=== PATIENT | female | born 1950 | race Caucasian/White ===

== ENCOUNTER 2017-06-05 10:48 | Outpatient (CLI) | payer MEDICARE ==
[2017-06-05 11:30] LABS: Albumin 2.9 g/dL (3.9-5); Calcium 8.7 mg/dL (8.4-10.2)
== END 2017-06-05 10:49 | disposition home or self-care (01) ==
LOC: LAB 10:48
PROVIDERS: ATTEND Internal Medicine Nephrology
DX: E11.65 Type 2 diabetes mellitus with hyperglycemia (principal); E78.5 Hyperlipidemia, unspecified; R94.4 Abnormal results of kidney function studies; R60.9 Edema, unspecified; R80.0 Isolated proteinuria
CPT/HCPCS: 36415; 80048; 82040; 84100

== ENCOUNTER 2021-03-31 14:37 | Observation (INO) | payer MEDICARE ==
[2021-03-31] MEDS ORDERED: HYDROcodone/ACETAMINOPHEN 5-325 MG TAB PO ONE (14:47)
[2021-03-31] MEDS ORDERED: cloNIDine 0.1 MG TAB PO ONE (14:47)
--- NOTE | 2021-03-31 14:52 | Emergency Department Report ---
ED General Adult HPI - General Chief complaint: Medical Clearance Stated complaint: MEDICAL CLEARANCE Time Seen by Provider: 03/31/21 14:40 Source: patient Mode of arrival: Ambulatory Limitations: Physical Limitation - History of Present Illness Initial comments: Patient is a 70-year-old female presents emergency room with complaints of being sent to the emergency department due to hyperkalemia. Patient has a history of end-stage renal disease. She states that she went for her regular dialysis appointment today but was advised to report to the emergency room due to hyperkalemia. She states that she had the lab work performed on 03/29/21. Patient reports that she did miss dialysis on Friday03/27/21 secondary to acute on chronic back pain but reports that she went for her regular dialysis treatment on , 03/29/21. Patient's only complaint is back pain. She states that she has a history of bulging disc. She states that she believes she strained a muscle in her back. She denies any fall or significant trauma. She denies any numbness or weakness. She denies any chest pain or shortness of breath. She states that her honing machine operator tool is Dr. Barillas in [place]. Allergy to indomethacin and ofloxacin. - Related Data Allergies Allergy/AdvReac Type Severity Reaction Status Date / Time indomethacin [From Indocin] Allergy Headache Verified 03/31/21 14:40 ofloxacin [From Floxin] Allergy Hives Verified 03/31/21 14:40 ED Review of Systems ROS: Stated complaint: MEDICAL CLEARANCE Other details as noted in HPI Comment: All other systems reviewed and negative ED Physical Exam - General Limitations: Physical Limitation General appearance: alert, in no apparent distress - Head Head exam: Present: atraumatic, normocephalic - Eye Eye exam: Present: normal appearance - ENT ENT exam: Present: mucous membranes moist - Respiratory Respiratory exam: Present: normal lung sounds bilaterally. Absent: respiratory distress, wheezes, rales, rhonchi, stridor, chest wall tenderness, accessory muscle use, decreased breath sounds, prolonged expiratory - Cardiovascular Cardiovascular Exam: Present: regular rate, normal rhythm, normal heart sounds. Absent: systolic murmur, diastolic murmur, rubs, gallop - Neurological Exam Neurological exam: Present: alert, oriented X3 - Psychiatric Psychiatric exam: Present: normal affect, normal mood - Skin Skin exam: Present: warm, dry, intact ED Course Vital Signs 03/31/21 03/31/21 03/31/21 14:40 15:05 15:08 Temperature 98.1 F Pulse Rate 91 H Respiratory 19 14 Rate Blood Pressure 234/100 Blood Pressure [Right] O2 Sat by Pulse 99 91 100 Oximetry 03/31/21 03/31/21 03/31/21 15:10 15:11 15:12 Temperature 98.1 F Pulse Rate 86 85 85 Respiratory 17 17 Rate Blood Pressure 200/79 200/79 Blood Pressure 200/79 [Right] O2 Sat by Pulse 99 99 Oximetry 03/31/21 03/31/21 03/31/21 16:01 16:03 16:31 Temperature Pulse Rate 74 74 71 Respiratory 14 17 15 Rate Blood Pressure 194/65 194/65 Blood Pressure 194/65 [Right] O2 Sat by Pulse 96 97 97 Oximetry 03/31/21 03/31/21 03/31/21 17:01 17:31 18:01 Temperature Pulse Rate 72 74 69 Respiratory 14 16 11 L Rate Blood Pressure 155/56 137/56 141/55 Blood Pressure [Right] O2 Sat by Pulse 99 99 97 Oximetry 03/31/21 03/31/21 18:31 19:01 Temperature Pulse Rate 80 68 Respiratory 18 11 L Rate Blood Pressure 136/57 158/74 Blood Pressure [Right] O2 Sat by Pulse 99 97 Oximetry - Consultations Consultation #1: 03/31/21 16:[address] West, honing machine operator tool regarding patient history and results, she states that patient will be dialyzed today and will likely be able to be discharged after dialysis 03/31/21 16:[address] Blanton, hospitalist will accept and resume care of patient, will admit to hospital service ED Medical Decision Making - Lab Data Result diagrams: 03/31/21 15:21 03/31/21 15:21 Lab Results 03/31/21 03/31/21 Range/Units 15:21 15:21 WBC 5.3 (4.5-11.0) K/mm3 RBC 3.57 L (3.65-5.03) M/mm3 Hgb 10.9 (10.1-14.3) gm/dl Hct 34.3 (30.3-42.9) % MCV 96 (79-97) fl MCH 31 (28-32) pg MCHC 32 (30-34) % RDW 15.6 H (13.2-15.2) % Plt Count 238 (140-440) K/mm3 Lymph % (Auto) 23.4 (13.4-35.0) % [place] % (Auto) 8.6 H (0.0-7.3) % Eos % (Auto) 5.1 H (0.0-4.3) % Baso % (Auto) 0.9 (0.0-1.8) % Lymph # (Auto) 1.2 (1.2-5.4) K/mm3 [place] # (Auto) 0.5 (0.0-0.8) K/mm3 Eos # (Auto) 0.3 (0.0-0.4) K/mm3 Baso # (Auto) 0.0 (0.0-0.1) K/mm3 Seg Neutrophils % 62.0 (40.0-70.0) % Seg Neutrophils # 3.3 (1.8-7.7) K/mm3 Sodium 132 L (137-145) mmol/L Potassium 5.9 H (3.6-5.0) mmol/L Chloride 92.4 L (98-107) mmol/L Carbon Dioxide 21 L (22-30) mmol/L Anion Gap 25 mmol/L BUN 54 H (7-17) mg/dL Creatinine 6.1 H (0.6-1.2) mg/dL Estimated GFR 7 ml/min BUN/Creatinine Ratio 9 % Glucose 118 H (65-100) mg/dL Calcium 9.0 (8.4-10.2) mg/dL Total Bilirubin 0.20 (0.1-1.2) mg/dL AST 12 (5-40) units/L ALT 8 (7-56) units/L Alkaline Phosphatase 108 (35-129) units/L Total Protein 7.0 (6.3-8.2) g/dL Albumin 3.7 L (3.9-5) g/dL Albumin/Globulin Ratio 1.1 % Vital Signs 03/31/21 03/31/21 03/31/21 14:40 15:05 15:08 Temperature 98.1 F Pulse Rate 91 H Respiratory 19 14 Rate Blood Pressure 234/100 Blood Pressure [Right] O2 Sat by Pulse 99 91 100 Oximetry 03/31/21 03/31/21 03/31/21 15:10 15:11 15:12 Temperature 98.1 F Pulse Rate 86 85 85 Respiratory 17 17 Rate Blood Pressure 200/79 200/79 Blood Pressure 200/79 [Right] O2 Sat by Pulse 99 99 Oximetry 03/31/21 03/31/21 03/31/21 16:01 16:03 16:31 Temperature Pulse Rate 74 74 71 Respiratory 14 17 15 Rate Blood Pressure 194/65 194/65 Blood Pressure 194/65 [Right] O2 Sat by Pulse 96 97 97 Oximetry 03/31/21 03/31/21 03/31/21 17:01 17:31 18:01 Temperature Pulse Rate 72 74 69 Respiratory 14 16 11 L Rate Blood Pressure 155/56 137/56 141/55 Blood Pressure [Right] O2 Sat by Pulse 99 99 97 Oximetry 03/31/21 03/31/21 18:31 19:01 Temperature Pulse Rate 80 68 Respiratory 18 11 L Rate Blood Pressure 136/57 158/74 Blood Pressure [Right] O2 Sat by Pulse 99 97 Oximetry - EKG Data EKG shows normal: sinus rhythm, axis Rate: normal - EKG Data 03/31/21 20:18 PACs low voltage no STEMI - Medical Decision Making Patient is a 70-year-old female presents emergency room with complaints of being sent to the emergency department due to hyperkalemia. Patient has a history of end-stage renal disease. She states that she went for her regular dialysis appointment today but was advised to report to the emergency room due to hyperkalemia. She states that she had the lab work performed on 03/29/21. Patient reports that she did miss dialysis on Friday03/27/21 secondary to acute on chronic back pain but reports that she went for her regular dialysis treatment on , 03/29/21. Patient's only complaint is back pain. She states that she has a history of bulging disc. She states that she believes she strained a muscle in her back. She denies any fall or significant trauma. She denies any numbness or weakness. She denies any chest pain or shortness of breath. She states that her honing machine operator tool is Dr. Barillas in [place]. Allergy to indomethacin and ofloxacin. Initial vitals with significantly elevated blood pressure, patient given medications with improvement of blood pressure. Lab significant for elevated creatinine, elevated BUN, hyperkalemia at 5.9. EKG with PACs and low voltage, otherwise stable. Spoke to Dr. West, honing machine operator tool regarding patient history and results, she states that patient will be dialyzed today and will likely be able to be discharged after dialysis. spoke to DR. Blanton, hospitalist will accept and resume care of patient, will admit to hospital service. Discussed all results with patient,patient agreeable with plan. Critical care attestation.: If time is entered above; I have spent that time in minutes in the direct care of this critically ill patient, excluding procedure time. ED Disposition Clinical Impression: ESRD (end stage renal disease), Hyperkalemia, Hypertensive urgency Chronic low back pain Qualifiers: Back pain laterality: bilateral Sciatica presence: without sciatica Qualified Code(s): M54.50 - Low back pain, unspecified Disposition: 02 [facility]ORT [facility]M [facility] Is pt being admited?: Yes Does the pt Need Aspirin: No Condition: Stable Time of Disposition: 16:12
[2021-03-31 15:33] LABS: Basophils % (Auto) 0.9 % (0.0-1.8); Eosinophils # (Auto) 0.3 K/mm3 (0.0-0.4); Eosinophils % (Auto) 5.1 % (0.0-4.3); Hematocrit 34.3 % (30.3-42.9); Hemoglobin 10.9 gm/dl (10.1-14.3); Lymphocytes # (Auto) 1.2 K/mm3 (1.2-5.4); Lymphocytes % (Auto) 23.4 % (13.4-35.0); Mean Corpuscular HGB Conc 32 % (30-34); Mean Corpuscular Volume 96 fl (79-97); Monocytes # (Auto) 0.5 K/mm3 (0.0-0.8); Monocytes % (Auto) 8.6 % (0.0-7.3); Platelet Count 238 K/mm3 (140-440); Red Blood Count 3.57 M/mm3 (3.65-5.03); Red Cell Distribution Width 15.6 % (13.2-15.2)
[2021-03-31 15:56] LABS: Albumin 3.7 g/dL (3.9-5)
[2021-03-31] MEDS ORDERED: hydrALAZINE 100 MG TAB PO ONE (16:11)
[2021-03-31] MEDS ORDERED: SODIUM CHLORIDE 0.9% 100 ML IV PRN (17:00)
[2021-03-31 18:08] LABS: Hepatitis C Virus Antibody Non-Reactive (NonReactive)
[2021-03-31 18:17] LABS: Hepatitis B Surface Antigen Nonreactive (Negative)
--- NOTE | 2021-03-31 18:34 | History and Physical Report ---
History of Present Illness Date of examination: 03/31/21 Date of admission: 03/31/21 16:12 Chief complaint: Next hemodialysis History of present illness: 60-year-old female with past medical history of end-stage renal disease sent to the emergency department because of high potassium level. Patient has a history of end-stage renal disease patient went to her regular dialysis appointment today but was advised to report to the emergency room because of hyperkalemia. She states that she had other lab performed on 03/29/2021 and initiated missed hemodialysis on 03/27/2021 secondary to acute on chronic back pain. She did not go for her regular dialysis treatment on , 03/29/2021. Patient's only complaint is back pain secondary to bulging disc. Patient wants to get her hemodialysis and go home because she has a dog at home no shortness of breath. Her lagging machine operator is [facility]. No chest pain. No fever or chills. Past History Past Medical History: hypertension, hyperlipidemia, renal failure Past Surgical History: Other (AV fistula) Social history: Lives alone, full code Family history: hypertension Medications and Allergies Allergies Allergy/AdvReac Type Severity Reaction Status Date / Time indomethacin [From Indocin] Allergy Headache Verified 03/31/21 14:40 ofloxacin [From Floxin] Allergy Hives Verified 03/31/21 14:40 Active Meds: Active Medications Sodium Chloride (Nacl 0.9%) 100 mls @ 999 mls/hr IV YOCASTA PRN PRN Reason: Hypotension Review of Systems All systems: negative Exam - Constitutional Vitals: Temp Pulse Resp BP Pulse Ox 98.1 F 74 16 137/56 99 03/31/21 15:12 03/31/21 17:31 03/31/21 17:31 03/31/21 17:31 03/31/21 17:31 General appearance: Present: no acute distress, well-nourished - EENT Eyes: Present: PERRL ENT: hearing intact, clear oral mucosa - Neck Neck: Present: supple, normal ROM - Respiratory Respiratory effort: normal Respiratory: bilateral: CTA - Cardiovascular Heart rate: 78 Rhythm: regular Heart Sounds: Present: S1 & S2. Absent: rub, click - Extremities Extremities: no ischemia, pulses intact, pulses symmetrical, No edema Peripheral Pulses: within normal limits - Abdominal General gastrointestinal: Present: soft, non-tender, non-distended, normal bowel sounds Female genitourinary: Present: normal - Integumentary Integumentary: Present: clear, warm, dry - Musculoskeletal Musculoskeletal: gait normal, strength equal bilaterally - Psychiatric Psychiatric: appropriate mood/affect, intact judgment & insight - Neurologic Neurologic: CNII-XII intact, moves all extremities - Allied Health Allied health notes reviewed: nursing, case management Results - Labs CBC & Chem 7: 03/31/21 15:21 03/31/21 15:21 Labs: Laboratory Last Values WBC 5.3 K/mm3 (4.5-11.0) 03/31/21 15: RBC 3.57 M/mm3 (3.65-5.03) L 03/31/21 15: Hgb 10.9 gm/dl (10.1-14.3) 03/31/21 15: Hct 34.3 % (30.3-42.9) 03/31/21 15: MCV 96 fl (79-97) 03/31/21 15: MCH 31 pg (28-32) 03/31/21 15: MCHC 32 % (30-34) 03/31/21 15: RDW 15.6 % (13.2-15.2) H 03/31/21 15:21 Plt Count 238 K/mm3 (140-440) 03/31/21 15:21 Lymph % (Auto) 23.4 % (13.4-35.0) 03/31/21 15: [place] % (Auto) 8.6 % (0.0-7.3) H 03/31/21 15: Eos % (Auto) 5.1 % (0.0-4.3) H 03/31/21 15:21 Baso % (Auto) 0.9 % (0.0-1.8) 03/31/21 15: Lymph # (Auto) 1.2 K/mm3 (1.2-5.4) 03/31/21 15:21 [place] # (Auto) 0.5 K/mm3 (0.0-0.8) 03/31/21 15:21 Eos # (Auto) 0.3 K/mm3 (0.0-0.4) 03/31/21 15:21 Baso # (Auto) 0.0 K/mm3 (0.0-0.1) 03/31/21 15:21 Seg Neutrophils % 62.0 % (40.0-70.0) 03/31/21 15:21 Seg Neutrophils # 3.3 K/mm3 (1.8-7.7) 03/31/21 15:21 Sodium 132 mmol/L (137-145) L 03/31/21 15:21 Potassium 5.9 mmol/L (3.6-5.0) H 03/31/21 15:21 Chloride 92.4 mmol/L (98-107) L 03/31/21 15:21 Carbon Dioxide 21 mmol/L (22-30) L 03/31/21 15:21 Anion Gap 25 mmol/L 03/31/21 15:21 BUN 54 mg/dL (7-17) H 03/31/21 15:21 Creatinine 6.1 mg/dL (0.6-1.2) H 03/31/21 15:21 Estimated GFR 7 ml/min 03/31/21 15:21 BUN/Creatinine Ratio 9 % 03/31/21 15:21 Glucose 118 mg/dL (65-100) H 03/31/21 15:21 Calcium 9.0 mg/dL (8.4-10.2) 03/31/21 15:21 Total Bilirubin 0.20 mg/dL (0.1-1.2) 03/31/21 15:21 AST 12 units/L (5-40) 03/31/21 15:21 ALT 8 units/L (7-56) 03/31/21 15:21 Alkaline Phosphatase 108 units/L (35-129) 03/31/21 15:21 Total Protein 7.0 g/dL (6.3-8.2) 03/31/21 15:21 Albumin 3.7 g/dL (3.9-5) L 03/31/21 15:21 Albumin/Globulin Ratio 1.1 % 03/31/21 15:21 Hepatitis A IgM Ab Non-reactive (NonReactive) 03/31/21 16:51 Hep Bs Antigen Nonreactive (Negative) 03/31/21 16:51 Hep B Core IgM Ab Non-reactive (NonReactive) 03/31/21 16:51 Hepatitis C Antibody Non-reactive (NonReactive) 03/31/21 16:51 Assessment and Plan Advance Directives: Yes (Full code) VTE prophylaxis?: Chemical Plan of care discussed with patient/family: Yes - Patient Problems (1) Hyperkalemia Current Visit: Yes Status: Acute Plan to address problem: Patient was given Kayexalate calcium gluconate and sodium bicarbonate Patient to get emergent hemodialysis today (2) ESRD (end stage renal disease) Current Visit: Yes Status: Chronic Plan to address problem: Hemodialysis today or tomorrow a.m. Nephrology consulted (3) Hypertension Current Visit: Yes Status: Chronic Qualifiers: Hypertension type: primary hypertension Qualified Code(s): I10 - Essential (primary) hypertension Plan to address problem: Continue antihypertensives and adjust medications (4) Chronic low back pain Current Visit: Yes Status: Chronic Qualifiers: Back pain laterality: bilateral Sciatica presence: without sciatica Qualified Code(s): M54.50 - Low back pain, unspecified; G89.29 - Other chronic pain Plan to address problem: Analgesics as necessary (5) DVT prophylaxis Current Visit: Yes Status: Acute Plan to address problem: Anticoagulation and GI prophylaxis (6) Discharge planning issues Current Visit: Yes Status: Acute Plan to address problem: Recheck potassium in a.m. Patient to be discharged after hemodialysis Potassium to be checked very hemodialysis nurse Informed 2122-dialysis clinic
[2021-03-31] MEDS ORDERED: ONDANSETRON 4 MG/2 ML INJ IV PRN (19:33)
[2021-03-31] MEDS ORDERED: ACETAMINOPHEN 325 MG TAB PO PRN (19:33)
[2021-03-31] MEDS ORDERED: oxyCODONE /ACETAMINOPHEN 5-325MG TAB PO PRN (19:38)
[2021-03-31] MEDS ORDERED: METOCLOPRAMIDE 10 MG/2 ML INJ IV PRN ×2 (19:38→19:44)
[2021-03-31] MEDS ORDERED: CALCIUM GLUCONATE 2,000 MG in SODIUM CHLORIDE 0.9% 100 ML IV ONE (19:40)
[2021-03-31] MEDS ORDERED: SODIUM POLYSTYRENE 15 GM/60 ML ORAL LIQD PO ONE (21:45)
[2021-03-31] MEDS ORDERED: SODIUM BICARB 8.4% 50 MEQ/50 ML SYRINGE IV ONE (21:45)
[2021-04-01] MEDS: HEPARIN 5,000 UNIT/1 ML VIAL SUB-Q SCH ×2 (03:46→09:58)
[2021-04-01] MEDS: FAMOTIDINE 10 MG TAB PO SCH ×3 (03:53→10:03)
--- NOTE | 2021-04-01 09:41 | Electrocardiograph Report ---
[facility] Test Date: 2021-03-31 Test Time: 15:55:38 Pat Name: TALIA ESCOBAR Department: Room: A379 Gender: F [employer]anner: KUSH : 1950 Requested By: VANESSA BYNUM Order Number: [id number] Reading MD: Keith Chaidez Measurements Intervals [place] Rate: 80 P: 62 NE: 167 QRS: 17 QRSD: 79 T: 64 QT: 371 QTc: 429 Interpretive Statements Sinus rhythm Atrial premature complex No previous ECG available for comparison Electronically Signed On 04-01-2021 9:40:46 EST by Keith Chaidez
[2021-04-01 11:58] LABS: Calcium 9.4 mg/dL (8.4-10.2)
--- NOTE | 2021-04-01 13:21 | Consultation ---
History of Present Illness - Reason for Consult Consult date: 04/01/21 end stage renal disease, hyperkalemia - History of Present Illness Mrs. Zarate is a 70yo with ESRD on HD TTS who presented to the ED at the direction of her outpatient dialysis clinic. Patient reports that she missed dialysis on Friday but presented and completed her full treatment on . Labs were collected pretreatment on7.47 sday and were remarkable for a K 7.4. She was sent to the ED for hyperkalemia In the ED, K 5.9. Hemodialysis was ordered. Mrs. Zarate has no complaints. Past History Past Medical History: hypertension, hyperlipidemia, renal failure Past Surgical History: Other (AV fistula) Social history: Lives alone, full code Family history: hypertension Medications and Allergies Allergies Allergy/AdvReac Type Severity Reaction Status Date / Time indomethacin [From Indocin] Allergy Headache Verified 03/31/21 14:40 ofloxacin [From Floxin] Allergy Hives Verified 03/31/21 14:40 Active Meds: Active Medications Acetaminophen (Acetaminophen 325 Mg Tab) 650 mg PO Q4H PRN PRN Reason: Pain MILD(1-3)/Fever >100.5/[place] Famotidine (Famotidine 10 Mg Tab) 10 mg PO BID [facility] Last Admin: 04/01/21 10:03 Dose: Not Given Documented by: Heparin Sodium (Porcine) (Heparin 5,000 Unit/1 Ml Vial) 5,000 unit SUB-Q Q12HR [facility] Last Admin: 04/01/21 09:58 Dose: 5,000 unit Documented by: Sodium Chloride (Nacl 0.9%) 100 mls @ 999 mls/hr IV YOCASTA PRN PRN Reason: Hypotension Metoclopramide HCl (Metoclopramide 10 Mg/2 Ml Inj) 2.5 mg IV Q6H PRN PRN Reason: Nausea And Vomiting Ondansetron HCl (Ondansetron 4 Mg/2 Ml Inj) 4 mg IV Q8H PRN PRN Reason: Nausea And Vomiting Oxycodone/Acetaminophen (Oxycodone /Acetaminophen 5-325mg Tab) 1 tab PO Q6H PRN PRN Reason: Pain, Moderate (4-6) Last Admin: 04/01/21 04:06 Dose: 1 tab Documented by: Sodium Chloride (Sodium Chloride 0.9% 10 Ml Flush Syringe) 10 ml IV BID [facility] Last Admin: 04/01/21 12:01 Dose: 10 ml Documented by: Sodium Chloride (Sodium Chloride 0.9% 10 Ml Flush Syringe) 10 ml IV PRN PRN PRN Reason: LINE FLUSH Review of Systems All systems: negative Exam - Vital Signs Vital signs: Vital Signs Temp Pulse Resp BP Pulse Ox 98.1 F 91 H 19 234/100 99 03/31/21 14:40 03/31/21 14:40 03/31/21 14:40 03/31/21 14:40 03/31/21 14:40 - General Appearance General appearance: well-developed, well-nourished EENT: ATNC Respiratory: Clear to Ascultation Heart: regular, S1S2 Gastrointestinal: Present: normal. Absent: tenderness, distended Integumentary: no rash, warm and dry Neurologic: alert and oriented x3 Musculoskeletal: Present: other (no edema) Psychiatric: cooperative Results - Lab Results 03/31/21 15:21 04/01/21 10:51 Most recent lab results Calcium 9.4 mg/dL (8.4-10.2) 04/01/21 10:51 Assessment and Plan Impression: * End stage renal disease * Hyperkalemia * Hypertension * Anemia secondary to ESRD * Secondary hyperparathyroidism Plan: * Patient is s/p hemodialysis yesterday * No indication for HD today * Continue outpatient TTS schedule * Okay to discharge from a renal standpoint * Patient advised of risk of with missed dialysis treatments. Need for compliance addressed with patient
--- NOTE | 2021-04-01 14:26 | Discharge Summary ---
Providers - Providers Date of Admission: 03/31/21 16:12 Date of discharge: 04/01/21 Attending physician: MEDHAT ANGEL MD 03/31/21 16:09 Consult to Physician [CONS] Stat Comment: Consulting Provider: JOSHUA SIMMS Physician Instructions: Reason For Exam: hyperkalemia, ESRD Hospitalization Condition: Stable Hospital course: Mrs. Zarate is a 70yo with obesity, HTN, DM, ESRD on HD TTS has ongoing lumbar back pain from a disc disease. She intermittently misses her dialysis. She missed her dialysis on last Friday due to back pain but went back for dialysis on and received full dialysis. Predialysis blood work showed potassium of 7.4 and patient was directed to ER on Friday from dialysis center to get hyperkalemia addressed. Her dialysis staff did not perform her dialysis and instead asked her to go to ER. In ED potassium 5.9 and was treated with insulin, glucose and sodium bicarbonate. CO2 21. Patient did not have dyspnea or volume overload. She was admitted and underwent dialysis last night. She is feeling fine and wants to go home. Potassium today is 4.4. Patient does not have her home med list and does not remember them. Patient reports that her blood pressure has been running high lately. However, reports good glycemic control with oral therapy. Patient was seen by nephrology and they cleared her for discharge. Patient was instructed by nephrology not to miss her dialysis which can cause severe hyperkalemia putting her at the risk of cardiac arrest and . Patient verbalizes her understanding of this and states that she will try to be compliant with dialysis. Patient instructed on a low potassium diet. She is being discharged hemodynamically stable condition. Patient is given a prescription for hydralazine 50 mg twice daily in addition to what she takes at home. She will see her PCP in within a week for follow-up on blood pressure as well as blood glucose. Discharge diagnosis: * End stage renal disease, suboptimal compliance with hemodialysis * Hyperkalemia * Hypertension, type 2 diabetes mellitus, chronic low back pain from disc disease, obesity * Anemia secondary to ESRD * Secondary hyperparathyroidism Disposition: HOME / SELF CARE / HOMELESS Final Discharge Diagnosis (Prints w/discharge instructions): End stage renal disease, suboptimal compliance with hemodialysis. Hyperkalemia. Hypertension, type 2 diabetes mellitus, chronic low back pain from disc disease, obesity. Anemia secondary to ESRD. Secondary hyperparathyroidism Core Measure Documentation - Palliative Care Palliative Care/ Comfort Measures: Not Applicable - Core Measures Any of the following diagnoses?: none Exam - Constitutional Vitals: Temp Pulse Resp BP Pulse Ox 98.1 F 76 18 187/68 92 04/01/21 11:46 04/01/21 11:46 04/01/21 11:46 04/01/21 11:46 04/01/21 11:46 General appearance: Present: no acute distress, obese, other (Alert and oriented) - EENT Eyes: Present: PERRL ENT: clear oral mucosa - Neck Neck: Present: normal ROM - Respiratory Respiratory effort: normal Respiratory: bilateral: CTA - Cardiovascular Rhythm: regular - Extremities Extremities: No edema - Abdominal General gastrointestinal: Present: soft, non-tender, other (Obese) - Integumentary Integumentary: Absent: rash - Musculoskeletal Musculoskeletal: strength equal bilaterally - Psychiatric Psychiatric: appropriate mood/affect - Neurologic Neurologic: no focal deficits, moves all extremities Plan Activity: advance as tolerated Diet: low fat, low salt, diabetic (1800 rachna), renal Special Instructions: restrict fluid intake to (1500 mL) Additional Instructions: Do not miss your dialysis which can cause high potassium level in blood. High potassium can cause cardiac arrest and . Keep your blood pressure and the blood sugar well controlled. See your family doctor/PCP in 1 week for follow-up. Continue your regular medications Follow up with: [facility] [Other] - 3-5 Days Prescriptions: hydrALAZINE [Apresoline TAB] 50 mg PO BID #60 tab
[2021-04-01 17:28] VITALS: BP 202/68
== END 2021-04-01 17:51 | disposition home or self-care (01) ==
LOC: ED 14:37 → 3A 16:12
PROVIDERS: ADMIT Internal Medicine; ATTEND Internal Medicine
DX: E87.5 Hyperkalemia (principal); I16.0 Hypertensive urgency; I12.0 Hypertensive chronic kidney disease with stage 5 chronic kidney disease or end stage renal disease; N18.6 End stage renal disease; D63.1 Anemia in chronic kidney disease; E78.5 Hyperlipidemia, unspecified; G89.29 Other chronic pain; M54.50 Low back pain, unspecified; N25.81 Secondary hyperparathyroidism of renal origin; Z79.899 Other long term (current) drug therapy; Z98.890 Other specified postprocedural states
CPT/HCPCS: 36415; 80048; 80053; 85025; 93005; 96372; 96374; 99284; G0257; G0378; J0610; J1644; 80074

== ENCOUNTER 2021-07-12 17:36 | Emergency (ER) | payer MEDICARE ==
[2021-07-12] MEDS ORDERED: amLODIPine 5 MG TAB PO ONE (18:25)
[2021-07-12] MEDS ORDERED: ACETAMINOPHEN 325 MG TAB PO ONE (18:25)
--- NOTE | 2021-07-12 18:26 | Emergency Department Report ---
ED General Adult HPI - General Chief complaint: Medical Clearance Stated complaint: POTASSIUM HIGH Time Seen by Provider: 07/12/21 18:03 Source: patient, RN notes reviewed, old records reviewed Mode of arrival: Ambulatory Limitations: No Limitations - History of Present Illness Initial comments: Nephrology: Dr. Barillas Past medical history: End-stage renal disease on hemodialysis Friday, , Friday, hypertension, chronic arthritis The patient is a pleasant 70-year-old female, who works as a former [employer] employee, who moved here to [place] in 1986 from [place], who presents to the ER today with a complaint of hyperkalemia. The patient reports that she was at her outpatient hemodialysis center on prior to completion of her h emodialysis, reports that she had prehemodialysis laboratory studies drawn, received a complete hemodialysis session, and subsequently was called because she had high potassium. She was referred to the emergency room. She complains of chronic back pain and arthritic pain in her joints but reports that this is not why she is here. She otherwise denies additional injuries and complaints. She does state that she takes Norvasc, 10 mg on a daily basis, and last took Norvasc yesterday. She was due for hemodialysis today, but was referred to the emergency room instead because of the aforementioned laboratory studies. She believes that her potassium was close to 8 but she is not for certain. She denies additional injuries and complaints. Location: back, left, right, lower extremity Quality: aching Consistency: intermittent Improves with: rest Worsens with: movement Associated Symptoms: denies other symptoms - Related Data Previous Rx's Medication Instructions Recorded Last Taken Type hydrALAZINE [Apresoline TAB] 50 mg PO BID #60 tab 04/01/21 Unknown Rx Allergies Allergy/AdvReac Type Severity Reaction Status Date / Time indomethacin [From Indocin] Allergy Headache Verified 03/31/21 14:40 ofloxacin [From Floxin] Allergy Hives Verified 03/31/21 14:40 ED Review of Systems ROS: Stated complaint: POTASSIUM HIGH Other details as noted in HPI Comment: All other systems reviewed and negative Musculoskeletal: arthralgia ED Past Medical Hx - Social History Smoking Status: Never Smoker Substance Use Type: None - Medications Home Medications: Home Medications Medication Instructions Recorded Confirmed Last Taken Type hydrALAZINE [Apresoline TAB] 50 mg PO BID #60 tab 04/01/21 Unknown Rx ED Physical Exam - General Limitations: No Limitations General appearance: alert, in no apparent distress, obese - Head Head exam: Present: atraumatic, normocephalic - Eye Eye exam: Present: normal appearance, EOMI. Absent: nystagmus - ENT ENT exam: Present: normal exam, normal orophraynx, mucous membranes moist, normal external ear exam - Neck Neck exam: Present: normal inspection, full ROM. Absent: tenderness, meningismus - Respiratory Respiratory exam: Present: normal lung sounds bilaterally. Absent: respiratory distress, wheezes, rales, rhonchi, stridor, decreased breath sounds - Cardiovascular Cardiovascular Exam: Present: regular rate, normal rhythm, normal heart sounds. Absent: bradycardia, tachycardia, irregular rhythm, systolic murmur, diastolic murmur, rubs, gallop - GI/Abdominal GI/Abdominal exam: Present: soft. Absent: distended, tenderness, guarding, rebound, rigid, pulsatile mass - Extremities Exam Extremities exam: Present: normal inspection (Left upper extremity fistula, without redness, pus or streaking), full ROM (There is an appropriate thrill noted in the left upper extremity), pedal edema, other (2+ pulses noted in the bilateral upper and lower extremities. There is no palpable cord. negative Homans sign. Muscular compartments are soft. The pelvis is stable.). Absent: calf tenderness - Back Exam Back exam: Present: normal inspection. Absent: tenderness, CVA tenderness (R), CVA tenderness (L), paraspinal tenderness, vertebral tenderness - Neurological Exam Neurological exam: Present: alert, oriented X3, normal gait, other (No facial droop. Tongue midline. Extraocular movements intact bilaterally. Facial sensation intact to light touch in V1, V2, V3 distribution bilaterally. 5 and a 5 strength in 4 extremities. Sensation intact to light touch in 4 extremities.). Absent: motor sensory deficit - Psychiatric Psychiatric exam: Present: normal affect, normal mood - Skin Skin exam: Present: warm, dry, intact, normal color. Absent: rash ED Course Vital Signs 07/12/21 07/12/21 07/12/21 17:56 19:06 19:26 Temperature 98.4 F Pulse Rate 71 89 Respiratory 18 Rate Blood Pressure 167/98 Blood Pressure 184/71 [Right] O2 Sat by Pulse 95 Oximetry O2 Sat by Pulse 98 Oximetry [ Digit-Finger] - Reevaluation(s) Reevaluation #1: 07/12/21 19:23 Differential diagnosis, including but not limited to: End-stage renal disease, chronic arthritis, chronic hypertension, hyperkalemia, anemia of chronic disease Assessment and plan: 70-year-old female, who is pleasant, calm and cooperative, in no acute distress, who presents to the ER today with a complaint of having high potassium. These laboratory studies were drawn 2 days ago, prior to her hemodialysis session. She denies acute complaints. Blood pressure improved after Norvasc. EKG fairly unremarkable. Laboratory studies today do not indicate need for emergency hemodialysis. She felt improved after Norvasc and Tylenol. As a courtesy, we will discuss with her nephrology team director international. 07/12/21 19:44 I discussed the patient's history, physical, laboratory studies and clinical impression with covering nephrology, Dr. Austin. He states he will arrange for hemodialysis tomorrow morning in the clinic. Discussed this with the patient, she verbalizes understanding - Pulse Oximetry Interpretation Digit-Finger Initial Pulse Oximetry Readin O2 Sat by Pulse Oximetry: 98 Actions Taken: none ED Medical Decision Making - Lab Data Result diagrams: 07/12/21 18:24 07/12/21 18:24 Vital Signs 07/12/21 07/12/21 17:56 19:06 Temperature 98.4 F Pulse Rate 71 89 Respiratory 18 Rate Blood Pressure 167/98 Blood Pressure 184/71 [Right] O2 Sat by Pulse 95 Oximetry Lab Results 07/12/21 07/12/21 Range/Units 18:24 18:24 WBC 5.4 (4.5-11.0) K/mm3 RBC 2.98 L (3.65-5.03) M/mm3 Hgb 9.6 L (10.1-14.3) gm/dl Hct 28.4 L (30.3-42.9) % MCV 95 (79-97) fl MCH 32 (28-32) pg MCHC 34 (30-34) % RDW 15.7 H (13.2-15.2) % Plt Count 215 (140-440) K/mm3 Lymph % (Auto) 17.7 (13.4-35.0) % [place] % (Auto) 10.2 H (0.0-7.3) % Eos % (Auto) 3.1 (0.0-4.3) % Baso % (Auto) 1.3 (0.0-1.8) % Lymph # (Auto) 1.0 L (1.2-5.4) K/mm3 [place] # (Auto) 0.6 (0.0-0.8) K/mm3 Eos # (Auto) 0.2 (0.0-0.4) K/mm3 Baso # (Auto) 0.1 (0.0-0.1) K/mm3 Seg Neutrophils % 67.7 (40.0-70.0) % Seg Neutrophils # 3.7 (1.8-7.7) K/mm3 Sodium 137 (137-145) mmol/L Potassium 5.1 H (3.6-5.0) mmol/L Chloride 95.2 L (98-107) mmol/L Carbon Dioxide 25 (22-30) mmol/L Anion Gap 22 mmol/L BUN 43 H (7-17) mg/dL Creatinine 5.4 H (0.6-1.2) mg/dL Estimated GFR 8 ml/min BUN/Creatinine Ratio 8 % Glucose 125 H (65-100) mg/dL Calcium 8.6 (8.4-10.2) mg/dL - EKG Data -: EKG Interpreted by Me EKG shows normal: sinus rhythm Rate: normal - EKG Data 07/12/21 19:25 The EKG is interpreted at 18: 14 Sinus rhythm, 74 bpm. Normal axis, normal P wave axis, poor R wave progression, and low voltage. This is an abnormal EKG. This is not a STEMI. Critical care attestation.: If time is entered above; I have spent that time in minutes in the direct care of this critically ill patient, excluding procedure time. ED Disposition Clinical Impression: ESRD (end stage renal disease), Hypertension, Arthritis Disposition: 01 HOME / SELF CARE / HOMELESS Is pt being admited?: No Does the pt Need Aspirin: No Condition: Good Instructions: Hypertension (ED) Additional Instructions: Please continue current outpatient medications. Please follow-up with your sewing machines salesperson as scheduled for hemodialysis. Take Tylenol [id number] as needed for physical pain. Participate in physical activities as tolerated. Please return to the emergency room right away with new pain, worsened pain, migration of pain, projectile vomiting, change in mental status, confusion, inability tolerate liquid feeds, new, worsened or different symptoms not present on the initial emergency room evaluation we have discussed her case with the covering sewing machines salesperson, Dr. Austin. He would like you to present to hemodialysis center tomorrow morning, 7:00 AM. Please have the dialysis facility call Dr. Austin if they have any concerns or questions. It is very important that the hemodialysis still to contact Dr. Austin if they have any concerns or misgivings, because he states that he will absolutely arrange for hemodialysis for the patient first thing tomorrow morning Today, patient's laboratory studies demonstrated a sodium of 137, potassium of 5.1, chloride of 95, CO2 of 25, blood urea nitrogen of 43, and creatinine of 5.4. Glucose is 125 Referrals: MARCOS BARILLAS MD [Staff Physician] - 3-5 Days
[2021-07-12 18:43] LABS: Basophils # (Auto) 0.1 K/mm3 (0.0-0.1); Basophils % (Auto) 1.3 % (0.0-1.8); Eosinophils # (Auto) 0.2 K/mm3 (0.0-0.4); Eosinophils % (Auto) 3.1 % (0.0-4.3); Hematocrit 28.4 % (30.3-42.9); Hemoglobin 9.6 gm/dl (10.1-14.3); Lymphocytes % (Auto) 17.7 % (13.4-35.0); Mean Corpuscular HGB Conc 34 % (30-34); Mean Corpuscular Volume 95 fl (79-97); Monocytes # (Auto) 0.6 K/mm3 (0.0-0.8); Monocytes % (Auto) 10.2 % (0.0-7.3); Platelet Count 215 K/mm3 (140-440); Red Blood Count 2.98 M/mm3 (3.65-5.03); Red Cell Distribution Width 15.7 % (13.2-15.2)
[2021-07-12 18:57] LABS: Calcium 8.6 mg/dL (8.4-10.2)
[2021-07-12 20:29] VITALS: BP 180/72
--- NOTE | 2021-07-13 10:08 | Electrocardiograph Report ---
[facility] Test Date: 2021-07-12 Test Time: 18:14:53 Pat Name: TALIA ESCOBAR Department: Room: Gender: F Pin Cleaner: ANAYELI : 1950 Requested By: THEODORE GONZALEZ Order Number: [id number] Reading MD: Ketih Pham Measurements Intervals [place] Rate: 74 P: 71 PA: 165 QRS: 44 QRSD: 80 T: 34 QT: 404 QTc: 451 Interpretive Statements Sinus rhythm PRWP Low voltage, precordial leads Compared to ECG 03/31/2021 15:55:38 Low QRS voltage now present Atrial premature complex(es) no longer present Electronically Signed On 07-13-2021 10:07:37 EDT by Keith Pham
== END 2021-07-12 20:30 | disposition home or self-care (01) ==
LOC: ED 17:36
DX: N18.6 End stage renal disease (principal); I10 Essential (primary) hypertension; M19.90 Unspecified osteoarthritis, unspecified site; Z88.6 Allergy status to analgesic agent; Z88.1 Allergy status to other antibiotic agents
CPT/HCPCS: 36415; 80048; 85025; 93005; 99283

== ENCOUNTER 2021-10-06 18:54 | Emergency (ER) | payer MEDICARE ==
[2021-10-06 20:20] LABS: Albumin 4.1 g/dL (3.9-5); Calcium 9.4 mg/dL (8.4-10.2)
--- NOTE | 2021-10-07 03:05 | Emergency Department Report ---
ED General Adult HPI - General Chief complaint: Recheck/Abnormal Lab/Rx Stated complaint: HIG POTASSIUM Time Seen by Provider: 10/07/21 02:08 Source: patient Mode of arrival: Ambulatory Limitations: No Limitations - History of Present Illness Initial comments: 70-year-old female end-stage renal disease receives dialysis on Friday and Friday presents my department seeking a chemistry evaluation to just make sure her potassium has come down she is asymptomatic and just finished dialysis on yesterday. Reports no fever, chills, sweats. Hemoptysis vomiting hematochezia, no nausea vomiting -: Gradual Radiation: non-radiation Quality: dull Consistency: constant Improves with: none Worsens with: none Associated Symptoms: malaise, nausea/vomiting. denies: cough, diaphoresis - Related Data Previous Rx's Medication Instructions Recorded Last Taken Type hydrALAZINE [Apresoline TAB] 50 mg PO BID #60 tab 04/01/21 Unknown Rx Allergies Allergy/AdvReac Type Severity Reaction Status Date / Time indomethacin [From Indocin] Allergy Headache Verified 03/31/21 14:40 ofloxacin [From Floxin] Allergy Hives Verified 03/31/21 14:40 ED Review of Systems ROS: Stated complaint: HIG POTASSIUM Other details as noted in HPI Comment: All other systems reviewed and negative ED Past Medical Hx - Past Medical History Previous Medical History?: Yes Hx Diabetes: Yes Hx Renal Disease: Yes (T//) Hx Arthritis: Yes - Surgical History Past Surgical History?: Yes Hx Cholecystectomy: Yes Additional Surgical History: RT knee. Carpal tunnel. Tonsillectomy. Uvula removal. left arm fistula - Social History Smoking Status: Never Smoker - Medications Home Medications: Home Medications Medication Instructions Recorded Confirmed Last Taken Type hydrALAZINE [Apresoline TAB] 50 mg PO BID #60 tab 04/01/21 Unknown Rx ED Physical Exam - General Limitations: No Limitations General appearance: alert, in no apparent distress - Head Head exam: Present: atraumatic, normocephalic - Eye Eye exam: Present: normal appearance, PERRL, EOMI Pupils: Present: normal accommodation - ENT ENT exam: Present: mucous membranes moist - Neck Neck exam: Present: normal inspection - Respiratory Respiratory exam: Present: normal lung sounds bilaterally. Absent: respiratory distress - Cardiovascular Cardiovascular Exam: Present: regular rate, normal rhythm. Absent: systolic murmur, diastolic murmur, rubs, gallop - GI/Abdominal GI/Abdominal exam: Present: soft, normal bowel sounds - Extremities Exam Extremities exam: Present: normal inspection - Back Exam Back exam: Present: normal inspection - Neurological Exam Neurological exam: Present: alert, oriented X3 - Psychiatric Psychiatric exam: Present: normal affect, normal mood - Skin Skin exam: Present: warm, dry, intact, normal color. Absent: rash ED Course Vital Signs 10/06/21 19:25 Temperature 98.8 F Pulse Rate 72 Respiratory 18 Rate Blood Pressure 192/79 O2 Sat by Pulse 95 Oximetry ED Medical Decision Making - Lab Data Result diagrams: 10/06/21 19:47 Critical care attestation.: If time is entered above; I have spent that time in minutes in the direct care of this critically ill patient, excluding procedure time. ED Disposition Clinical Impression: Hyperkalemia, ESRD (end stage renal disease) Disposition: HOME / SELF CARE / HOMELESS Is pt being admited?: No Does the pt Need Aspirin: No Condition: Stable Instructions: Hyperkalemia, [id number] Additional Instructions: You have been seen evaluate emergency department today to evaluate your potassium levels as you reported being high in the sevens prior to dialysis these last 2 set up. Your potassium did show significant improvement currently 5.1 as opposed to the mid sevens a couple days ago. Patient to follow-up with primary care provider for further management of this issue Referrals: [facility] [Provider Group] - 3-5 Days
[2021-10-07 04:02] VITALS: BP 189/89
== END 2021-10-07 03:15 | disposition home or self-care (01) ==
LOC: ED 18:54
DX: E11.22 Type 2 diabetes mellitus with diabetic chronic kidney disease (principal); N18.6 End stage renal disease; M19.90 Unspecified osteoarthritis, unspecified site; Z90.49 Acquired absence of other specified parts of digestive tract; Z91.09 Other allergy status, other than to drugs and biological substances; Z79.899 Other long term (current) drug therapy
CPT/HCPCS: 36415; 80053; 99283

== ENCOUNTER 2021-12-12 14:31 | Inpatient (IN) | payer MEDICARE ==
[2021-12-12] MEDS ORDERED: ONDANSETRON 4 MG/2 ML INJ IV ONE (15:24)
[2021-12-12] MEDS ORDERED: MORPHINE 4 MG/1 ML INJ IV ONE (15:24)
--- NOTE | 2021-12-12 15:26 | Emergency Department Report ---
ED General Adult HPI - General Chief complaint: Nausea/Vomiting/Diarrhea Stated complaint: MISSED DIALYSIS/DIARRHEA X5 Time Seen by Provider: 12/12/21 15:06 Source: patient, EMS ( EMS documentation not available at time of chart dictation ), RN notes reviewed, old records reviewed Mode of arrival: Stretcher Limitations: Physical Limitation - History of Present Illness Initial comments: The patient was evaluated in the emergency department for symptoms described in the history of present illness. He/she was evaluated in the context of the global COVID-19 pandemic, which necessitated consideration that the patient might be at risk for infection with the virus that causes COVID-19. Institutional protocols and algorithms that pertain to the evaluation of patients at risk for COVID-19 are in a state of rapid change based on information released by regulatory bodies including the CDC and federal and state organizations. These policies and algorithms were followed during the patient's care in the emergency department. Please note that these policies, procedures and recommendations changed on a rapid basis. Nephrology: Dr. Barillas This is a pleasant and cooperative 71-year-old female. I have evaluated this patient in the past. She has a past medical history of disability from chronic pain, hypertension, chronic arthritis, and end-stage renal disease on hemodialysis, Friday, , Friday. She reports that last week, she had a declotting procedure done on her left upper extremity fistula. She has missed 3 sessions of dialysis at least. She endorses nausea, vomiting, cramping, lower extremity swelling, and generalized weakness. She had a few episodes of nonbloody nonbilious diarrhea, which was brown and occasionally black. She takes iron sulfate supplementation. No recent antibiotic use. No dysuria. Chronic musculoskeletal back pain. She also endorses concern that she now lives by herself. She is from [facility], and her best friend recently , and her recently . She is concerned about being able to take care of herself independently, and is also asking for a case management evaluation. -: Gradual Location: back Radiation: abdomen Quality: aching Consistency: intermittent Improves with: rest Worsens with: movement - Related Data Previous Rx's Medication Instructions Recorded Last Taken Type hydrALAZINE [Apresoline TAB] 50 mg PO BID #60 tab 04/01/21 Unknown Rx Allergies Allergy/AdvReac Type Severity Reaction Status Date / Time indomethacin [From Indocin] Allergy Headache Verified 12/12/21 14:39 ofloxacin [From Floxin] Allergy Hives Verified 12/12/21 14:39 ED Review of Systems ROS: Stated complaint: MISSED DIALYSIS/DIARRHEA X5 Other details as noted in HPI Constitutional: malaise. denies: fever Eyes: denies: eye discharge ENT: congestion Respiratory: denies: cough Cardiovascular: denies: chest pain Gastrointestinal: abdominal pain, nausea, vomiting, diarrhea. denies: hematemesis, hematochezia Genitourinary: denies: dysuria Musculoskeletal: back pain, arthralgia, myalgia Neurological: weakness (Chronic generalized weakness) Hematological/Lymphatic: denies: easy bleeding ED Past Medical Hx - Past Medical History Hx Diabetes: Yes Hx Renal Disease: Yes (//S) Hx Arthritis: Yes - Surgical History Hx Cholecystectomy: Yes Additional Surgical History: RT knee. Carpal tunnel. Tonsillectomy. Uvula removal. left arm fistula - Social History Smoking Status: Never Smoker - Medications Home Medications: Home Medications Medication Instructions Recorded Confirmed Last Taken Type hydrALAZINE [Apresoline TAB] 50 mg PO BID #60 tab 04/01/21 Unknown Rx ED Physical Exam - General Limitations: Physical Limitation General appearance: alert, in no apparent distress, obese - Head Head exam: Present: atraumatic, normocephalic - Eye Eye exam: Present: normal appearance, EOMI. Absent: nystagmus - ENT ENT exam: Present: normal exam, normal orophraynx, mucous membranes moist, normal external ear exam - Neck Neck exam: Present: normal inspection, full ROM. Absent: tenderness, meningismus - Respiratory Respiratory exam: Present: normal lung sounds bilaterally. Absent: respiratory distress, wheezes, rales, rhonchi, stridor, decreased breath sounds - Cardiovascular Cardiovascular Exam: Present: regular rate, normal rhythm, normal heart sounds. Absent: bradycardia, tachycardia, irregular rhythm, systolic murmur, diastolic murmur, rubs, gallop - GI/Abdominal GI/Abdominal exam: Present: soft. Absent: distended, tenderness, guarding, rebound, rigid, pulsatile mass - Extremities Exam Extremities exam: Present: full ROM, pedal edema (3+ edema noted in the bilateral lower extremities), other (2+ pulses noted in the bilateral upper and lower extremities. There is no long bony tenderness. The muscular compartments are soft. There is a left upper extremity fistula, with appropriate thrill, without redness, pus or streaking). Absent: normal inspection (Venous stasis noted to the bilateral lower extremities. Chronic appearing stasis ulcer noted to the right lower extremity), tenderness, calf tenderness - Back Exam Back exam: Present: normal inspection, paraspinal tenderness. Absent: tenderness, CVA tenderness (R), muscle spasm, vertebral tenderness - Neurological Exam Neurological exam: Present: alert, oriented X3, other (No facial droop. Tongue midline. Extraocular movements intact bilaterally. Facial sensation intact to light touch in V1, V2, V3 distribution bilaterally. 5 and a 5 strength in 4 extremities. Sensation intact to light touch in 4 extremities.). Absent: motor sensory deficit - Psychiatric Psychiatric exam: Present: flat affect - Skin Skin exam: Present: warm, dry. Absent: rash, diaphoretic, erythema, urticaria, vesicles, petechiae, pallor, abrasion, ecchymosis ED Course Vital Signs 12/12/21 14:36 Temperature 98.2 F Pulse Rate 68 Respiratory 18 Rate Blood Pressure 181/78 [Left] O2 Sat by Pulse 100 Oximetry - Reevaluation(s) Reevaluation #1: 12/12/21 15:53 Differential diagnosis, including but not limited to: Azotemia, uremia, fluid overload, case management patient, chronic pain syndrome Assessment and plan: 71-year-old female who is likely symptomatically azotemic and uremic, with probable hyperkalemia, with resolved diarrhea. She has had 2 bowel movements in the past 24 hours. No recent antibiotic use. She has chronic musculoskeletal pain. I suspect that the patient requires urgent or emergent hemodialysis. We have requested EKG, and appropriate laboratory studies. I will treat the patient with appropriate pain medication, she takes chronic narcotics. Have also requested case management consult, because after the patient has been medically optimized and stabilized, she will likely benefit from case management evaluation and intervention. I discussed this plan of care with the patient. She is agreeable to the plan of care. Awaiting laboratory studies, x-ray, and EKG at this time. We will also discussed with her gasoline plant operator wants her initial diagnostics result 12/12/21 16:57 As expected, patient is found to have evidence of hyperkalemia, azotemia, uremia, and metabolic acidosis. Hospital physician, Dr. Talavera to admit. Consulted critical care, Dr. Danny Ronquillo She will follow in consultation, and agrees with placement to the intensive care unit. Discussed history, physical, laboratory studies and clinical impression with nephrology on-call, Dr. Sanya Barillas Patient to be treated medically in maximal fashion, for symptomatic hyperkalemia. Have requested emergent hemodialysis. The gasoline plant operator will arrange for hemodialysis ED Medical Decision Making - Lab Data Result diagrams: 12/12/21 15:44 12/12/21 15:44 Vital Signs 12/12/21 14:36 Temperature 98.2 F Pulse Rate 68 Respiratory 18 Rate Blood Pressure 181/78 [Left] O2 Sat by Pulse 100 Oximetry Lab Results 12/12/21 12/12/21 12/12/21 Range/Units 15:39 15:44 15:44 WBC 6.1 (4.5-11.0) K/mm3 RBC 3.27 L (3.65-5.03) M/mm3 Hgb 10.2 (10.1-14.3) gm/dl Hct 31.1 (30.3-42.9) % MCV 95 (79-97) fl MCH 31 (28-32) pg MCHC 33 (30-34) % RDW 17.5 H (13.2-15.2) % Plt Count 183 (140-440) K/mm3 PT 13.8 (12.2-14.9) Sec. INR 0.96 (0.87-1.13) Sodium 133 L (137-145) mmol/L Potassium 8.8 H* (3.6-5.0) mmol/L Chloride 92.4 L (98-107) mmol/L Carbon Dioxide 16 L (22-30) mmol/L Anion Gap 33 mmol/L BUN 98 H (7-17) mg/dL Creatinine 9.7 H (0.6-1.2) mg/dL Estimated GFR 4 ml/min BUN/Creatinine Ratio 10 % Glucose 129 H (65-100) mg/dL Calcium 8.4 (8.4-10.2) mg/dL Magnesium 2.70 H (1.7-2.3) mg/dL Total Bilirubin 0.30 (0.1-1.2) mg/dL AST 18 (5-40) units/L ALT 10 (7-56) units/L Alkaline Phosphatase 90 (35-129) units/L Total Creatine Kinase 100 (30-135) units/L Total Protein 7.2 (6.3-8.2) g/dL Albumin 4.3 (3.9-5) g/dL Albumin/Globulin Ratio 1.5 % Blood Type 12/12/21 Range/Units 15:50 WBC (4.5-11.0) K/mm3 RBC (3.65-5.03) M/mm3 Hgb (10.1-14.3) gm/dl Hct (30.3-42.9) % MCV (79-97) fl MCH (28-32) pg MCHC (30-34) % RDW (13.2-15.2) % Plt Count (140-440) K/mm3 PT (12.2-14.9) Sec. INR (0.87-1.13) Sodium (137-145) mmol/L Potassium (3.6-5.0) mmol/L Chloride (98-107) mmol/L Carbon Dioxide (22-30) mmol/L Anion Gap mmol/L BUN (7-17) mg/dL Creatinine (0.6-1.2) mg/dL Estimated GFR ml/min BUN/Creatinine Ratio % Glucose (65-100) mg/dL Calcium (8.4-10.2) mg/dL Magnesium (1.7-2.3) mg/dL Total Bilirubin (0.1-1.2) mg/dL AST (5-40) units/L ALT (7-56) units/L Alkaline Phosphatase (35-129) units/L Total Creatine Kinase (30-135) units/L Total Protein (6.3-8.2) g/dL Albumin (3.9-5) g/dL Albumin/Globulin Ratio % Blood Type O POSITIVE - EKG Data -: EKG Interpreted by Wy - EKG Data 12/12/21 16:51 The EKG is interpreted at 16: 10 Accelerated junctional rhythm, rate 81 bpm. Extreme rightward axis deviation. QTc 4 8 5 ms. There is motion artifact. This is an abnormal EKG. This is not a STEMI. The patient denies chest pain - Radiology Data Radiology results: pending, report reviewed, image reviewed CHEST 1 VIEW 12/12/2021 2:58 PM INDICATION / CLINICAL INFORMATION: esrd missed hd. COMPARISON: None available. FINDINGS: SUPPORT DEVICES: None. HEART / MEDIASTINUM: No significant abnormality. LUNGS / PLEURA: No significant pulmonary or pleural abnormality. No pneumothorax. ADDITIONAL FINDINGS: No significant additional findings. IMPRESSION: 1. No acute findings. Signer Name: Chuckie Herrera MD Signed: 12/12/2021 3:00 PM Workstation Name: [id number] Critical Care Time: Yes Critical care time in (mins) excluding proc time.: 35 Critical care attestation.: If time is entered above; I have spent that time in minutes in the direct care of this critically ill patient, excluding procedure time. ED Disposition Clinical Impression: Chronic low back pain, Hypertension, Volume overload, End-stage renal disease needing dialysis, Missed dialysis, Case management patient, Hyperkalemia, Metabolic acidosis Disposition: 09 ADMITTED INPATIENT Is pt being admited?: Yes Does the pt Need Aspirin: No Condition: Critical Instructions: Hypertension (ED)
--- NOTE | 2021-12-12 16:04 | XRay Report ---
CHEST 1 VIEW 12/12/2021 2:58 PM INDICATION / CLINICAL INFORMATION: esrd missed hd. COMPARISON: None available. FINDINGS: SUPPORT DEVICES: None. HEART / MEDIASTINUM: No significant abnormality. LUNGS / PLEURA: No significant pulmonary or pleural abnormality. No pneumothorax. ADDITIONAL FINDINGS: No significant additional findings. IMPRESSION: 1. No acute findings. Signer Name: Chuckie Herrera MD Signed: 12/12/2021 4:00 PM Workstation Name: [employer]
[2021-12-12 16:19] LABS: Hematocrit 31.1 % (30.3-42.9); Hemoglobin 10.2 gm/dl (10.1-14.3); Mean Corpuscular HGB Conc 33 % (30-34); Mean Corpuscular Volume 95 fl (79-97); Platelet Count 183 K/mm3 (140-440); Red Blood Count 3.27 M/mm3 (3.65-5.03); Red Cell Distribution Width 17.5 % (13.2-15.2)
[2021-12-12 16:28] LABS: INR 0.96 (0.87-1.13)
[2021-12-12 16:33] LABS: Albumin 4.3 g/dL (3.9-5); Calcium 8.4 mg/dL (8.4-10.2)
[2021-12-12] MEDS ORDERED: SODIUM POLYSTYRENE 15 GM/60 ML ORAL LIQD PO ONE (16:49)
[2021-12-12] MEDS ORDERED: ALBUTEROL 2.5 MG/3 ML NEBU IH ONE (16:49)
[2021-12-12] MEDS ORDERED: DEXTROSE 50% IN WATER (25GM) 50 ML VIAL IV PRN (16:49)
[2021-12-12] MEDS ORDERED: INSULIN REGULAR, HUMAN 100 UNITS/1 ML IV ONE (16:49)
[2021-12-12] MEDS ORDERED: CALCIUM GLUCONATE 1,000 MG in SODIUM CHLORIDE 0.9% 100 ML IV ONE (16:49)
[2021-12-12] MEDS ORDERED: DEXTROSE 50% IN WATER (25GM) 50 ML VIAL IV ONE (16:49)
--- NOTE | 2021-12-12 16:51 | History and Physical Report ---
History of Present Illness Chief complaint: I do not feel good History of present illness: 71 YO Female with ESRD on HD(T,R,Sa ),HTN, HLD, Vascular Dementia, Cerebral Atherosclerosis presents to ED for evaluation. Patient reports "I do not feel good". Patient states that over the past 3 days she has experience generalized weakness, nausea, multiple episodes of vomiting, abdominal cramping, lower extremity edema with persistent and worsening symptoms over the same timeframe. Patient states that she has not undergone dialysis over the past week due to the aforementioned symptoms. EMS notified and upon arrival the patient was found to be in distress and subsequent transported to [facility] for further care and evaluation of the aforementioned symptoms. The patient was seen and evaluated in the emergency department. All lab and imaging studies reviewed. Patient found to have end-stage renal disease in need of urgent dialysis, fluid overload, metabolic acidosis, hyperkalemia with EKG changes with widened QRS, peaked T waves, and loss of P waves, as well as accelerated hypertension. Patient admitted to ICU due to increased risk of worsening symptoms and for medical stabilization. Critical care team consulted in ED. Patient denies fever, chills, chest pain, palpitation, productive cough, skin rash, recent contact, no exposure to COVID-19. Prior admission on 03/31/2021 reviewed. All medication listed at time of admission as reconciled. Advanced care planning conducted in ED. Past History Past Medical History: ESRD, hypertension, other (See HPI) Past Surgical History: Other (Carpal tunnel, right knee, dialysis access,) Social history: single. denies: smoking, alcohol abuse, prescription drug abuse Family history: hypertension Medications and Allergies Allergies Allergy/AdvReac Type Severity Reaction Status Date / Time indomethacin [From Indocin] Allergy Headache Verified 12/12/21 14:39 ofloxacin [From Floxin] Allergy Hives Verified 12/12/21 14:39 Home Medications Medication Instructions Recorded Confirmed Last Taken Type hydrALAZINE [Apresoline TAB] 50 mg PO BID #60 tab 04/01/21 Unknown Rx Review of Systems Constitutional: fatigue, weakness, no weight loss, no fever, no chills Ears, nose, mouth and throat: no ear pain, no ear discharge, no decreased hearing, no nose pain, no nasal discharge Breasts: no change in shape, no swelling, no mass Cardiovascular: no chest pain, no orthopnea Respiratory: no cough, no cough with sputum, no excessive sputum, no hemoptysis Gastrointestinal: nausea, vomiting, no abdominal pain, no diarrhea Genitourinary Female: no pelvic pain, no flank pain, no dysuria, no urinary frequency, no urgency Musculoskeletal: no neck stiffness, no neck pain, no shooting arm pain, no low back pain, no shooting leg pain Integumentary: no rash, no sores, no jaundice, no boils Neurological: no head injury, no transient paralysis, no weakness, no parathesias, no seizures, no ataxia Psychiatric: no anxiety, no change in sleep habits, no insomnia, no hypersomnia, no disorientation Endocrine: no cold intolerance, no heat intolerance, no polydipsia, no polyuria, no nocturia Hematologic/Lymphatic: no easy bruising, no easy bleeding, no lymphedema Allergic/Immunologic: no urticaria, no allergic rhinitis, no persistent infections Exam - Constitutional Vitals: Temp Pulse Resp BP Pulse Ox 98.2 F 68 18 181/78 100 12/12/21 14:36 12/12/21 14:36 12/12/21 14:36 12/12/21 14:36 12/12/21 14:36 General appearance: Present: mild distress, obese - EENT Eyes: Present: PERRL ENT: hearing intact, clear oral mucosa - Neck Neck: Present: supple, normal ROM - Respiratory Respiratory effort: normal Respiratory: bilateral: CTA - Cardiovascular Heart Sounds: Present: S1 & S2. Absent: rub, click - Extremities Extremities: pulses symmetrical, No edema Peripheral Pulses: within normal limits - Abdominal General gastrointestinal: Present: soft, non-tender, non-distended, normal bowel sounds Female genitourinary: Present: normal - Integumentary Integumentary: Present: clear, warm, dry - Musculoskeletal Musculoskeletal: gait normal, strength equal bilaterally - Psychiatric Psychiatric: appropriate mood/affect, intact judgment & insight - Neurologic Neurologic: CNII-XII intact, moves all extremities Results - Labs CBC & Chem 7: 12/12/21 15:44 12/12/21 15:44 Labs: Abnormal lab results 12/12/21 12/12/21 Range/Units 15:44 15:44 RBC 3.27 L (3.65-5.03) M/mm3 RDW 17.5 H (13.2-15.2) % Sodium 133 L (137-145) mmol/L Potassium 8.8 H* (3.6-5.0) mmol/L Chloride 92.4 L (98-107) mmol/L Carbon Dioxide 16 L (22-30) mmol/L BUN 98 H (7-17) mg/dL Creatinine 9.7 H (0.6-1.2) mg/dL Glucose 129 H (65-100) mg/dL Magnesium 2.70 H (1.7-2.3) mg/dL Assessment and Plan - Patient Problems (1) Hyperkalemia Current Visit: Yes Status: Acute Plan to address problem: Hyperkalemia with EKG changes. Patient admitted to ICU, patient treated with Kayexalate, calcium gluconate. Telemetry monitoring. Serial EKG monitoring. Nephrology team consulted in ED for urgent dialysis. The high probability of a clinically significant, sudden or life threatening deterioration of the [renal, endocrine, neuro] system(s) required my full and direct attention, intervention and personal management. The aggregate critical care time was [65] minutes. This time is in addition to time spent performing reported procedures but includes the following: [x] Data Review and interpretation [x] Patient assessment and monitoring of vital signs [x] Documentation [x] Medication orders and management (2) End-stage renal disease needing dialysis Current Visit: No Status: Acute Plan to address problem: Nephrology team consulted in ED, strict I's/O, monitoring output every shift, urgent dialysis as per renal team, monitor fluid balance, avoid nephrotoxic agents. (3) Noncompliance Current Visit: Yes Status: Acute Plan to address problem: Patient counseled regarding compliance with outpatient dialysis. Patient acknowledges understanding instructions. (4) Vascular dementia Current Visit: Yes Status: Acute Qualifiers: Dementia behavioral disturbance: without behavioral disturbance Qualified Code(s): F01.50 - Vascular dementia without behavioral disturbance Plan to address problem: Verbal prompting, verbal redirection, benzodiazepine therapy as clinical indicated. (5) Cerebral atherosclerosis Current Visit: Yes Status: Acute Plan to address problem: Risk factor reduction, antiplatelet therapy as clinical indicated. (6) Metabolic acidosis Current Visit: Yes Status: Acute Plan to address problem: Urgent dialysis, supportive care, repeat BMP in AM. (7) Hypertensive urgency Current Visit: No Status: Acute Plan to address problem: Monitor blood pressure every shift, continue medical management, IV hydralazine every 6 hours as needed for systolic blood pressure greater than 255 mmHg. (8) Volume overload Current Visit: No Status: Acute Qualifiers: Hypervolemia type: unspecified Qualified Code(s): E87.70 - Fluid overload, unspecified Plan to address problem: Nephrology team consulted in ED, urgent dialysis. Supportive care (9) DVT prophylaxis Current Visit: Yes Status: Acute Plan to address problem: SCD to bilateral lower extremities while in bed (10) Advance care planning Current Visit: Yes Status: Acute Plan to address problem: Disease education done, care plan discussed, diagnoses discussed, prognosis discussed, patient is full code. +30 minutes. (11) Preventative health care Current Visit: Yes Status: Acute Plan to address problem: Patient counseled regarding home safety, compliance with renal diet, outpatient follow-up with primary care physician for all age and risk factor appropriate screening test. +30 minutes.
[2021-12-12] MEDS ORDERED: ONDANSETRON 4 MG/2 ML INJ IV PRN (17:00)
[2021-12-12] MEDS ORDERED: ALBUTEROL 2.5 MG/3 ML NEBU IH PRN (17:00)
[2021-12-12] MEDS ORDERED: oxyCODONE /ACETAMINOPHEN 5-325MG TAB PO PRN (17:00)
[2021-12-12] MEDS ORDERED: ACETAMINOPHEN 325 MG TAB PO PRN (17:00)
[2021-12-12] MEDS ORDERED: DEXTROSE 50% IN WATER (25GM) 50 ML SYRINGE IV SCH (17:30)
[2021-12-12] MEDS ORDERED: CALC GLUCONATE 1GM/NS 100 ML 1 GM/100 ML BAG IV ONE (18:00)
--- NOTE | 2021-12-12 18:27 | Consultation ---
History of Present Illness Consult date: 12/12/21 Requesting physician: THEODORE GONZALEZ Reason for consult: other (Severe Hyperkalemia; Acute Hypoxemic Respiratory Failure) History of present illness: PULMONARY/CCM CONSULT NOTE (Full note dictated) Please see dictated notes for full details CONDITION: CRITICAL PROGNOSIS: GUARDED CODE STATUS: FULL CODE The high probability of a clinically significant, sudden or life-threatening deterioration of the [Renal, respiratory, cardiovascular & GI] system(s) required my full and direct attention, intervention and personal management. The aggregate critical care time was [34] minutes without overlap. Time includes spent on; [x] Data Review and interpretation [x] Patient assessment and monitoring of vital signs [x] Documentation [x] Medication orders and management Past History Past Medical History: ESRD, hypertension, other (See HPI) Past Surgical History: Other (Carpal tunnel, right knee, dialysis access,) Social history: single. denies: smoking, alcohol abuse, prescription drug abuse Family history: hypertension Medications and Allergies Allergies Allergy/AdvReac Type Severity Reaction Status Date / Time indomethacin [From Indocin] Allergy Headache Verified 12/12/21 14:39 ofloxacin [From Floxin] Allergy Hives Verified 12/12/21 14:39 Home Medications Medication Instructions Recorded Confirmed Last Taken Type hydrALAZINE [Apresoline TAB] 50 mg PO BID #60 tab 04/01/21 Unknown Rx Active Meds: Active Medications Acetaminophen (Acetaminophen 325 Mg Tab) 650 mg PO Q4H PRN PRN Reason: Pain MILD(1-3)/Fever >100.5/[place] Albuterol (Albuterol 2.5 Mg/3 Ml Nebu) 2.5 mg IH Q4HRT PRN PRN Reason: Shortness Of Breath Dextrose (Dextrose 50% In Water (25gm) 50 Ml Vial) 50 gm IV Q30MIN PRN; Protocol PRN Reason: Hypoglycemia Dextrose (Dextrose 50% In Water (25gm) 50 Ml Syringe) 100 ml IV ONCE@1730 ARIEL Stop: 12/12/21 20:30 Hydralazine HCl (Hydralazine 20 Mg/1 Ml Inj) 10 mg IV Q6HR PRN PRN Reason: Hypertension Hydromorphone HCl (Hydromorphone 0.5 Mg/0.5 Ml Inj) 0.5 mg IV Q23H PRN PRN Reason: Pain , Severe (7-10) Ondansetron HCl (Ondansetron 4 Mg/2 Ml Inj) 4 mg IV Q8H PRN PRN Reason: Nausea And Vomiting Oxycodone/Acetaminophen (Oxycodone /Acetaminophen 5-325mg Tab) 1 tab PO Q16H PRN PRN Reason: Pain, Moderate (4-6) Sodium Chloride (Sodium Chloride 0.9% 10 Ml Flush Syringe) 10 ml IV BID ARIEL Sodium Chloride (Sodium Chloride 0.9% 10 Ml Flush Syringe) 10 ml IV PRN PRN PRN Reason: LINE FLUSH Physical Examination Vital signs: Vital Signs Temp Pulse Resp BP Pulse Ox 98.2 F 68 18 181/78 100 12/12/21 14:36 12/12/21 14:36 12/12/21 14:36 12/12/21 14:36 12/12/21 14:36 Results - Laboratory Findings CBC and BMP: 12/12/21 15:44 12/12/21 15:44 PT/INR, D-dimer PT 13.8 Sec. (12.2-14.9) 12/12/21 15:39 INR 0.96 (0.87-1.13) 12/12/21 15:39 Abnormal lab findings: Abnormal Labs 12/12/21 12/12/21 15:44 15:44 RBC 3.27 L RDW 17.5 H Sodium 133 L Potassium 8.8 H* Chloride 92.4 L Carbon Dioxide 16 L BUN 98 H Creatinine 9.7 H Glucose 129 H Magnesium 2.70 H NT-Pro-B Natriuret Pep 87300 H
[2021-12-12] MEDS ORDERED: SODIUM CHLORIDE 0.9% 100 ML IV PRN (19:11)
--- NOTE | 2021-12-12 20:02 | Event Note ---
Date: 12/12/21 patient missed dialysis for [address] week . [address]. Finley Has K of 8.8 with EKG changes Patient to receive medical treatment for hyperkalemia Arranged for STAT dialysis treatment . Spoke with diaysis nurse . Patient will need dialysis again tomorrow
[2021-12-12 20:08] LABS: Hepatitis B Surface Antigen Non-Reactive (Negative); Hepatitis C Virus Antibody Non-Reactive (NonReactive)
--- NOTE | 2021-12-12 20:32 | Event Note ---
Date: 12/12/21 Pt downgraded to Telemetry care after initiation of critical care and urgent dialysis.
[2021-12-12] MEDS: hydrALAZINE 20 MG/1 ML INJ IV PRN (22:27)
[2021-12-12 23:41] LABS: Calcium 8.7 mg/dL (8.4-10.2)
[2021-12-12] MEDS ORDERED: METOPROLOL TARTRATE 5 MG/5 ML INJ IV ONE (23:42)
--- NOTE | 2021-12-13 04:26 | Consultation ---
DATE OF CONSULTATION: 12/12/2021 PULMONARY CRITICAL CARE CONSULT NOTE CONSULTING PHYSICIAN: Dr. Borjas. REASON FOR CONSULTATION: Severe hyperkalemia, acute hypoxemic respiratory failure. CHIEF COMPLAINT AND HISTORY OF PRESENT ILLNESS: The patient is a now 71-year-old obese female with a past medical history significant for end-stage renal disease, for which she is on dialysis Tuesdays, and Saturdays, stated that she had an AV graft repaired last week and was not able to go for the next dialysis session. She said thereafter she tried to go in, I think that was on Friday, but was told that she could not come in on the Friday because she is Tuesdays, and Saturdays. She ended up missing 3 sessions. She stated that she has developed generalized weakness, nausea, multiple episodes of vomiting, abdominal pain. Her chronic low back pain has been exacerbated. 911 was called. She was brought to the Emergency Room. In the Emergency Room, amongst other things, she had evidence of mild interstitial edema, but in particular severe hyperkalemia and needing urgent hemodialysis. ICU admission was requested secondary to widen QRS and peaked T waves and loss of P waves and it was offered. I stopped by to see her. She was in the dialysis room, getting dialyzed and tolerating well. Blood pressure was holding up. She denied fevers or chills. She denies any gross or streaky hemoptysis. This really is as much of the history of presentation as I have. Of note, she denies any history of tobacco use or abuse whatsoever. PAST MEDICAL HISTORY: End-stage renal disease, on dialysis; hypertension, hyperlipidemia, vascular dementia, obesity. PAST SURGICAL HISTORY: She has had carpal tunnel surgery, right knee surgery and AV graft in the left upper extremity. MEDICATIONS: She was on at the time I stopped by to see her according to the medication administration record included the following: Tylenol 650 mg p.o. q. 4 hours p.r.n. mild pain or fevers, albuterol 2.5 mg nebulized q. 4 hours p.r.n. shortness of breath, hydralazine 10 mg IV q. 6 hours p.r.n. elevated blood pressures, Dilaudid 0.5 mg IV q. 23 hours p.r.n. severe pain, Zofran 4 mg IV q. 8 hours p.r.n. nausea and vomiting, Percocet 1 tablet p.o. q. 16 hours p.r.n. moderate pain. ALLERGIES: INDOMETHACIN AND OFLOXACIN. NATURE OF THIS ALLERGY IS UNKNOWN. DIET: Obese lady, denies acute weight loss or gain in the preceding few weeks to months. FAMILY AND SOCIAL HISTORY: Lives in the community. Denies alcohol, tobacco or illicit drug use or abuse. There is a family history of hypertension. REVIEW OF SYSTEMS: No loss of consciousness. No new onset seizures. No new onset focal weakness. She denies gross hematochezia or melena. Denies gross hematuria or dysuria. No hematemesis. She did have the multiple emesis. Denies polydipsia, polyuria. Denies heat or cold intolerance. She has complained also of a headache amongst constellation of symptoms. Review of systems otherwise unobtainable or as in body of history above. PHYSICAL EXAMINATION: VITAL SIGNS: She is afebrile, temperature 98.2 degrees Fahrenheit, pulse of 68, respiratory rate of 18, blood pressure 181/78, O2 sats were 100%. At the time I saw her, she was on 2 liters nasal cannula. GENERAL: She is again morbidly obese female. Normocephalic, atraumatic. Talking to me in full sentences, but with mildly increased respiratory effort at rest. HEAD, EYES, EARS, NOSE AND THROAT: Anicteric. No conjunctival erythema. Oropharynx was moist. NECK: No gross jugular venous distention, no thyromegaly. Grossly, there were no palpable lymph nodes in the supraclavicular or submandibular lymph node chains. LUNGS: Auscultation of both lung osman, diminished breath sounds, clear bilaterally. No wheezing. HEART: Sounds 1 and 2 are heard at the time of my evaluation, regular rate and rhythm without overt rubs or murmurs. ABDOMEN: Soft, full, protuberant. Bowel sounds are positive, nontender, no palpable hepatosplenomegaly. EXTREMITIES: Without overt digital clubbing or cyanosis, no pedal edema. Pedal pulses are 2+ bilaterally. NEUROLOGIC: Pupils were equal, round, about 4 mm, reactive to light. Extraocular muscle movements are intact. She moves all 4 extremities spontaneously. SKIN: Normal turgor without overt cellulitis or rash in the areas I examined. Please see the wound care nurses' notes for full description of her skin. PSYCHIATRIC: Mood was normal. Affect was appropriate. She had intact judgment and insight. LABORATORY DATA: From my review are as follows: White cell count 6100, hemoglobin 10.2, hematocrit 31.2, platelet count 183. INR within normal limits. Serum sodium was 133, potassium 8.8, chloride was 92, bicarbonate was 16, BUN 98, creatinine 9.7, glucose 129. Liver function tests otherwise essentially within normal limits. No microbiology studies for my review. Chest x-ray at the worst mild interstitial edema, borderline cardiomegaly. It is a rotated film, rotated to the left slightly. No gross pneumothorax, no gross bony fracture. ASSESSMENT: 1. Severe hyperkalemia. 2. End-stage renal disease, on dialysis. 3. History of medical noncompliance. 4. Hypertensive urgency. 5. Mild pulmonary edema. 6. Metabolic acidosis. 7. Hyponatremia. 8. History of hyperlipidemia. 9. History of vascular dementia. 10. Obesity. PLAN: She is looking good on the dialysis machine and tolerating it well. Hyperkalemia is obviously going to be corrected during the dialysis sessions. Rhythm at this point is normal sinus rhythm. I do not see any significantly peaked T waves on the monitor; however, it is not a 12-lead EKG. Oxygen will be weaned to keep sats greater than or equal to 90%. Aspiration precautions will be maintained. P.r.n. analgesia will be given per the pain score. Better dialysis and medical care compliance has been recommended. She will get p.r.n. blood pressure meds for systolic greater than 165-170 and her home medications will be instituted. Continued tobacco abstinence has been counseled. She will be placed on GI and DVT prophylaxis. Flu and pneumonia vaccination will be addressed per protocol. Thank you very much for the consult. We will follow along and make further recommendations as picture progresses/becomes clearer. She will be reevaluated post-dialysis and need for continued ICU stay will be reevaluated. TID: [id number] RECEIPT: [id number] AJSanya/EARL
[2021-12-13 05:06] LABS: Calcium 8.2 mg/dL (8.4-10.2)
[2021-12-13] MEDS: HYDROmorphone 0.5 MG/0.5 ML INJ IV PRN (09:31)
[2021-12-13] MEDS ORDERED: NALOXONE 0.4 MG/1 ML INJ IV PRN (10:00)
--- NOTE | 2021-12-13 12:41 | Progress Note ---
Assessment and Plan 71 YO Female with ESRD on HD(T,R,Sa ),HTN, HLD, Vascular Dementia, Cerebral Atherosclerosis presents to ED for evaluation. Patient states that over the past 3 days she has experience generalized weakness, nausea, multiple episodes of vomiting, abdominal cramping, lower extremity edema with persistent and worsening symptoms over the same timeframe. Patient states that she has not undergone dialysis over the past week due to the aforementioned symptoms. EMS notified and upon arrival the patient was found to be in distress and subsequent transported to [facility] for further care and evaluation of the aforementioned symptoms. The patient was seen and evaluated in the emergency department. Patient found to have end-stage renal disease in need of urgent dialysis, fluid overload, metabolic acidosis, hyperkalemia with EKG changes with widened QRS, peaked T waves, and loss of P waves, as well as accelerated hypertension. Patient admitted to ICU due to increased risk of worsening symptoms and for medical stabilization. Critical care team consulted . Patient denies fever, chills, chest pain, palpitation, productive cough, skin rash, recent contact, no exposure to COVID-19. Patients surgical history is repair of carpel tunnel ,d ialysis access, right knee surgery. Patient has no history of smoking, alcohol or drug abuse. Patient use to work in [employer]. Patient is . Has two step children. Indomethacin and Ofloxacin. Patient receiving hemodialysis at this time. Alert, awake. On room air. O2 saturation 97%. No acute respiratory distress. Denies chest pain, shortness of breath or cough. Patient afebrile. No leukocytosis. Blood pressure 182/89, Pulse 83 Respirations 16. Chest xray done 12/12/21 reported No acute findings. Patient is on albuterol inhalor 2 puffs po q 4 hours prn for shortness of breath. Recommend DVT and GI Prophylaxis. - Patient Problems (1) ESRD (end stage renal disease) Current Visit: No Status: Chronic Plan to address problem: Patient missed her dialysis as out patient.. BUN 98, creatine 9.7. Patient receiving dialysis at this time. Management as per nephrology. (2) Hypertensive urgency Current Visit: No Status: Acute Plan to address problem: Patients blood pressure still high. Recent blood pressure 182/89. Patient is on Amalodipine and Hydralagine. Patient is on hemodialysis. Management as per primary care and nephrology. (3) Volume overload Current Visit: Yes Status: Acute Plan to address problem: Patient is on Hemodialysis. Chest xray reported lungs clear. (4) Metabolic acidosis Current Visit: Yes Status: Acute Plan to address problem: Patients anion gap on admission 33. Anion gap coming down. To days anion gap 19. ABGs on room air. (5) Cerebral atherosclerosis Current Visit: Yes Status: Acute Plan to address problem: Management of blood pressure and cholesterol as per primary care. (6) Vascular dementia Current Visit: Yes Status: Acute Qualifiers: Dementia behavioral disturbance: without behavioral disturbance Qualified Code(s): F01.50 - Vascular dementia without behavioral disturbance Plan to address problem: Patient more alert, oriented to day. Able to give history. Answred the questions appropriately. Management as per primary care and neurology. Subjective Date of service: 12/13/21 Interval history: 71 YO Female with ESRD on HD(T,R,Sa ),HTN, HLD, Vascular Dementia, Cerebral Atherosclerosis presents to ED for evaluation. Patient states that over the past 3 days she has experience generalized weakness, nausea, multiple episodes of vomiting, abdominal cramping, lower extremity edema with persistent and worsening symptoms over the same timeframe. Patient states that she has not undergone dialysis over the past week due to the aforementioned symptoms. EMS notified and upon arrival the patient was found to be in distress and subsequent transported to [facility] for further care and evaluation of the aforementioned symptoms. The patient was seen and evaluated in the emergency department. Patient found to have end-stage renal disease in need of urgent dialysis, fluid overload, metabolic acidosis, hyperkalemia with EKG changes with widened QRS, peaked T waves, and loss of P waves, as well as accelerated hypertension. Patient admitted to ICU due to increased risk of worsening symptoms and for medical stabilization. Critical care team consulted . Patient denies fever, chills, chest pain, palpitation, productive cough, skin rash, recent contact, no exposure to COVID-19. Patients surgical history is repair of carpel tunnel ,dialysis access, right knee surgery. Patient has no history of smoking, alcohol or drug abuse. Patient use to work in [employer]. Patient is . Has two step children. Indomethacin and Ofloxacin. Patient receiving hemodialysis at this time. Alert, awake. On room air. O2 saturation 97%. No acute respiratory distress. Denies chest pain, shortness of breath or cough. Patient afebrile. No leukocytosis. Blood pressure 182/89, Pulse 83 Respiratio ns 16. Chest xray done 12/12/21 reported No acute findings. Patient is on albuterol inhalor 2 puffs po q 4 hours prn for shortness of breath. Recommend DVT and GI Prophylaxis. Objective Vital Signs - 12hr 12/13/21 12/13/21 12/13/21 01:41 03:40 04:00 Temperature 97.6 F Pulse Rate 69 68 Respiratory 16 Rate Blood Pressure 171/70 O2 Sat by Pulse 99 94 Oximetry O2 Sat by Pulse Oximetry [ Bilateral Throughout] 12/13/21 12/13/21 12/13/21 08:08 08:09 09:10 Temperature 97.5 F L 98.3 F Pulse Rate 70 70 Respiratory 16 Rate Blood Pressure 161/55 182/87 O2 Sat by Pulse 99 94 Oximetry O2 Sat by Pulse 97 Oximetry [ Bilateral Throughout] 12/13/21 12/13/21 12/13/21 09:30 09:45 10:00 Temperature Pulse Rate 70 73 75 Respiratory Rate Blood Pressure 182/87 182/87 189/79 O2 Sat by Pulse Oximetry O2 Sat by Pulse Oximetry [ Bilateral Throughout] 12/13/21 12/13/21 12/13/21 10:15 10:26 10:30 Temperature Pulse Rate 70 73 Respiratory Rate Blood Pressure 184/74 174/74 O2 Sat by Pulse 94 Oximetry O2 Sat by Pulse Oximetry [ Bilateral Throughout] 12/13/21 12/13/21 12/13/21 10:45 11:00 11:15 Temperature Pulse Rate 75 85 96 H Respiratory Rate Blood Pressure 195/90 194/83 167/87 O2 Sat by Pulse Oximetry O2 Sat by Pulse Oximetry [ Bilateral Throughout] 12/13/21 12/13/21 12/13/21 11:30 11:45 12:00 Temperature Pulse Rate 99 H 96 H 83 Respiratory Rate Blood Pressure 157/89 148/88 144/82 O2 Sat by Pulse Oximetry O2 Sat by Pulse Oximetry [ Bilateral Throughout] 12/13/21 12:15 Temperature Pulse Rate 81 Respiratory Rate Blood Pressure 173/81 O2 Sat by Pulse Oximetry O2 Sat by Pulse Oximetry [ Bilateral Throughout] Constitutional: no acute distress, alert, other (Receiving Hemodialysis.) Eyes: non-icteric ENT: oropharynx moist Neck: supple, no lymphadenopathy Effort: normal Ascultation: Bilateral: clear Cardiovascular: regular rate and rhythm Gastrointestinal: normoactive bowel sounds, soft, non-tender Integumentary: normal Extremities: no cyanosis, no edema Neurologic: normal mental status, non-focal exam, pupils equal and round, CN II- XII normal Psychiatric: mood appropriate, affect normal CBC and BMP: 12/12/21 15:44 12/13/21 03:29 ABG, PT/INR, D-dimer: PT/INR, D-dimer PT 13.8 Sec. (12.2-14.9) 12/12/21 15:39 INR 0.96 (0.87-1.13) 12/12/21 15:39 Abnormal lab findings: Abnormal Labs 12/12/21 12/12/21 12/12/21 15:44 15:44 23:02 RBC 3.27 L RDW 17.5 H Sodium 133 L 134 L Potassium 8.8 H* 5.2 H D Chloride 92.4 L 90.2 L Carbon Dioxide 16 L BUN 98 H 35 H Creatinine 9.7 H 4.7 H D Glucose 129 H 111 H Calcium Magnesium 2.70 H NT-Pro-B Natriuret Pep 03594 H 12/13/21 03:29 RBC RDW Sodium 136 L Potassium Chloride 93.7 L Carbon Dioxide BUN 35 H Creatinine 5.3 H Glucose Calcium 8.2 L Magnesium NT-Pro-B Natriuret Pep Chest x-ray: report reviewed, image reviewed Additional Studies: CHEST 1 VIEW 12/12/2021 2:58 PM INDICATION / CLINICAL INFORMATION: esrd missed hd. COMPARISON: None available. FINDINGS: SUPPORT DEVICES: None. HEART / MEDIASTINUM: No significant abnormality. LUNGS / PLEURA: No significant pulmonary or pleural abnormality. No pneumothorax. ADDITIONAL FINDINGS: No significant additional findings. IMPRESSION: 1. No acute findings.
[2021-12-13] MEDS: SERTRALINE 50 MG TAB PO SCH (13:56)
[2021-12-13] MEDS: amLODIPine 10 MG TAB PO SCH (13:56)
[2021-12-13] MEDS: MORPHINE 30 MG ER TAB PO SCH ×2 (13:56→21:38)
--- NOTE | 2021-12-13 13:56 | Progress Note ---
Assessment and Plan Assessment and plan: #Hyperkalemia- resolved -initial K 8.8 -> 5.2 -> 5.0 -noted EKG changes on admission -secondary to missed HD x 1 week -management with HD #End-stage renal disease needing dialysis #Volume overload -outpatient HD TTS schedule -dialyzed yesterday and today; UF with dialysis -renally dose medications, avoid nephrotoxins -Nephrology following, assistance appreciated #Noncompliance -Patient counseled regarding compliance with outpatient dialysis #Metabolic acidosis-resolved -secondary to missed HD and ESRD #Hypertensive urgency-resolved -continue amlodipine at home dose -will adjust BP mediations as needed -goal SBP <160 while in patient #Chronic pain -Continue home morphine and oxycodone, [place] APPLIANCE SERVICER aware was checked and patient last filled prescriptions 11/19/21 -naloxone PRN ordered #Advanced care planning -Disease education conducted, care plan discussed, diagnoses discussed, prognosis discussed, and patient acknowledges understanding with care plan -Time: +30 min History Interval history: No acute events overnight. Patient was dialyzed yesterday seen in dialysis center today. She reported initial generalized weakness after procedure to repair her AV fistula last Friday. She also endorsed nausea and vomiting which has resolved since admission. Hospitalist Physical - Physical exam Narrative exam: GENERAL: Well-developed well-nourished. In no acute distress. HEENT: Normocephalic. Atraumatic. NECK: Supple. CHEST/LUNGS: CTAB on room air HEART/CARDIOVASCULAR: RRR. No murmur, rubs or gallops appreciated. ABDOMEN: +BS. NT/ND. SKIN: No rashes noted. NEURO: No focal motor deficit. Follows all commands. MUSCULOSKELETAL: LUE AVF. EXTREMITIES: No cyanosis, clubbing or edema. PSYCH: Cooperative. - Constitutional Vitals: Temp Pulse Resp BP Pulse Ox 98.3 F 83 16 182/89 97 12/13/21 12:59 12/13/21 12:59 12/13/21 12:59 12/13/21 12:59 12/13/21 12:59 General appearance: Present: mild distress, obese Results - Labs CBC & Chem 7: 12/12/21 15:44 12/13/21 03:29 Labs: Laboratory Last Values WBC 6.1 K/mm3 (4.5-11.0) 12/12/21 15:44 RBC 3.27 M/mm3 (3.65-5.03) L 12/12/21 15:44 Hgb 10.2 gm/dl (10.1-14.3) 12/12/21 15:44 Hct 31.1 % (30.3-42.9) 12/12/21 15:44 MCV 95 fl (79-97) 12/12/21 15:44 MCH 31 pg (28-32) 12/12/21 15:44 MCHC 33 % (30-34) 12/12/21 15:44 RDW 17.5 % (13.2-15.2) H 12/12/21 15:44 Plt Count 183 K/mm3 (140-440) 12/12/21 15:44 PT 13.8 Sec. (12.2-14.9) 12/12/21 15:39 INR 0.96 (0.87-1.13) 12/12/21 15:39 Sodium 136 mmol/L (137-145) L 12/13/21 03:29 Potassium 5.0 mmol/L (3.6-5.0) 12/13/21 03:29 Chloride 93.7 mmol/L (98-107) L 12/13/21 03:29 Carbon Dioxide 28 mmol/L (22-30) 12/13/21 03:29 Anion Gap 19 mmol/L 12/13/21 03:29 BUN 35 mg/dL (7-17) H 12/13/21 03:29 Creatinine 5.3 mg/dL (0.6-1.2) H 12/13/21 03:29 Estimated GFR 8 ml/min 12/13/21 03:29 BUN/Creatinine Ratio 7 % 12/13/21 03:29 Glucose 84 mg/dL (65-100) 12/13/21 03:29 Calcium 8.2 mg/dL (8.4-10.2) L 12/13/21 03:29 Magnesium 2.70 mg/dL (1.7-2.3) H 12/12/21 15:44 Total Bilirubin 0.30 mg/dL (0.1-1.2) 12/12/21 15:44 AST 18 units/L (5-40) 12/12/21 15:44 ALT 10 units/L (7-56) 12/12/21 15:44 Alkaline Phosphatase 90 units/L (35-129) 12/12/21 15:44 Total Creatine Kinase 100 units/L (30-135) 12/12/21 15:44 NT-Pro-B Natriuret Pep 16758 pg/mL (0-900) H 12/12/21 15:44 Total Protein 7.2 g/dL (6.3-8.2) 12/12/21 15:44 Albumin 4.3 g/dL (3.9-5) 12/12/21 15:44 Albumin/Globulin Ratio 1.5 % 12/12/21 15:44 Hepatitis A IgM Ab Non-reactive (NonReactive) 12/12/21 18:24 Hep Bs Antigen Non-reactive (Negative) 12/12/21 18:24 Hep B Core IgM Ab Non-reactive (NonReactive) 12/12/21 18:24 Hepatitis C Antibody Non-reactive (NonReactive) 12/12/21 18:24 Blood Type O POSITIVE 12/12/21 15:50 Antibody Screen Negative 12/12/21 15:50 Active Medications - Current Medications Current Medications: Generic Name Dose Route Start Last Admin Trade Name Freq PRN Reason Stop Dose Admin Acetaminophen 650 mg 12/12/21 17:00 Acetaminophen 325 Mg Tab PO Q4H PRN Pain MILD(1-3)/Fever >100.5/ال[place] Albuterol 2.5 mg 12/12/21 17:00 Albuterol 2.5 Mg/3 Ml Nebu IH Q4HRT PRN Shortness Of Breath Amlodipine Besylate 10 mg 12/13/21 10:00 Amlodipine 10 Mg Tab PO DAILY ARIEL Dextrose 50 gm 12/12/21 16:49 Dextrose 50% In Water (25gm) 50 Ml Vial IV Q30MIN PRN Hypoglycemia Protocol Hydralazine HCl 10 mg 12/12/21 17:52 12/12/21 22:27 Hydralazine 20 Mg/1 Ml Inj IV 10 mg Q6HR PRN Administration Hypertension Hydromorphone HCl 0.5 mg 12/12/21 17:00 12/13/21 09:31 Hydromorphone 0.5 Mg/0.5 Ml Inj IV 0.5 mg Q23H PRN Administration Pain , Severe (7-10) Sodium Chloride 100 mls @ 999 mls/hr 12/12/21 19:11 Nacl 0.9% IV YOCASTA PRN Hypotension Morphine Sulfate 30 mg 12/13/21 10:30 Morphine 30 Mg Er Tab PO Q12H ARIEL Naloxone HCl 0.1 mg 12/13/21 10:00 Naloxone 0.4 Mg/1 Ml Inj IV Q2MIN PRN Res Rate </= 8 or 02 SAT < 92% Ondansetron HCl 4 mg 12/12/21 17:00 Ondansetron 4 Mg/2 Ml Inj IV Q8H PRN Nausea And Vomiting Oxycodone/Acetaminophen 2 tab 12/13/21 10:30 Oxycodone /Acetaminophen 5-325mg Tab PO Q12H PRN Pain, Moderate (4-6) Sertraline HCl 50 mg 12/13/21 10:00 Sertraline 50 Mg Tab PO QDAY ARIEL Sodium Chloride 10 ml 12/12/21 17:30 12/13/21 09:02 Sodium Chloride 0.9% 10 Ml Flush Syringe IV Not Given BID ARIEL Sodium Chloride 10 ml 12/12/21 17:00 Sodium Chloride 0.9% 10 Ml Flush Syringe IV PRN PRN LINE FLUSH Tizanidine HCl 4 mg 12/13/21 10:30 Tizanidine Tab 4 Mg Tab PO TID PRN Muscle Spasm
--- NOTE | 2021-12-13 14:41 | Consultation ---
History of Present Illness - Reason for Consult Consult date: 12/13/21 end stage renal disease, hyperkalemia - History of Present Illness This is a 71-year-old woman with end-stage renal disease on hemodialysis TTS, hypertension, hyperlipidemia and vascular dementia who presented to the emergen cy department with one-week history of missed dialysis secondary to diarrhea. In the ER she was determined to be fluid overloaded and noted to have acidosis, severe hyperkalemia with T wave changes on EKG and she was subsequently admitted for further workup. Nephrology was consulted for ESRD management and patient underwent urgent dialysis overnight. She denies chest pain, shortness of breath, presyncope and syncope. Past History Past Medical History: ESRD, hypertension, other (See HPI) Past Surgical History: Other (Carpal tunnel, right knee, dialysis access,) Social history: single. denies: smoking, alcohol abuse, prescription drug abuse Family history: hypertension Medications and Allergies Allergies Allergy/AdvReac Type Severity Reaction Status Date / Time indomethacin [From Indocin] Allergy Headache Verified 12/12/21 14:39 ofloxacin [From Floxin] Allergy Hives Verified 12/12/21 14:39 Home Medications Medication Instructions Recorded Confirmed Last Taken Type Morphine ER [Ms Contin ER] 30 mg PO Q12H 12/13/21 12/13/21 Unknown History Oxycodone HCl/Acetaminophen 1 each PO Q12HR PRN 12/13/21 12/13/21 Unknown History [Percocet 10/325 mg] Sertraline [Zoloft] 50 mg PO QDAY 12/13/21 12/13/21 Unknown History amLODIPine [Norvasc] 10 mg PO DAILY 12/13/21 12/13/21 Unknown History tiZANidine [Zanaflex 4mg TAB] 4 mg PO TID PRN 12/13/21 12/13/21 Unknown History Active Meds: Active Medications Acetaminophen (Acetaminophen 325 Mg Tab) 650 mg PO Q4H PRN PRN Reason: Pain MILD(1-3)/Fever >100.5/[place] Albuterol (Albuterol 2.5 Mg/3 Ml Nebu) 2.5 mg IH Q4HRT PRN PRN Reason: Shortness Of Breath Amlodipine Besylate (Amlodipine 10 Mg Tab) 10 mg PO DAILY ARIEL Last Admin: 12/13/21 13:56 Dose: 10 mg Dextrose (Dextrose 50% In Water (25gm) 50 Ml Vial) 50 gm IV Q30MIN PRN; Protocol PRN Reason: Hypoglycemia Hydralazine HCl (Hydralazine 20 Mg/1 Ml Inj) 10 mg IV Q6HR PRN PRN Reason: Hypertension Last Admin: 12/12/21 22:27 Dose: 10 mg Hydromorphone HCl (Hydromorphone 0.5 Mg/0.5 Ml Inj) 0.5 mg IV Q23H PRN PRN Reason: Pain , Severe (7-10) Last Admin: 12/13/21 09:31 Dose: 0.5 mg Sodium Chloride (Nacl 0.9%) 100 mls @ 999 mls/hr IV YOCASTA PRN PRN Reason: Hypotension Morphine Sulfate (Morphine 30 Mg Er Tab) 30 mg PO Q12H [facility] Last Admin: 12/13/21 13:56 Dose: 30 mg Naloxone HCl (Naloxone 0.4 Mg/1 Ml Inj) 0.1 mg IV Q2MIN PRN PRN Reason: Res Rate </= 8 or 02 SAT < 92% Ondansetron HCl (Ondansetron 4 Mg/2 Ml Inj) 4 mg IV Q8H PRN PRN Reason: Nausea And Vomiting Oxycodone/Acetaminophen (Oxycodone /Acetaminophen 5-325mg Tab) 2 tab PO Q12H PRN PRN Reason: Pain, Moderate (4-6) Sertraline HCl (Sertraline 50 Mg Tab) 50 mg PO QDAY [facility] Last Admin: 12/13/21 13:56 Dose: 50 mg Sodium Chloride (Sodium Chloride 0.9% 10 Ml Flush Syringe) 10 ml IV BID [facility] Last Admin: 12/13/21 09:02 Dose: Not Given Sodium Chloride (Sodium Chloride 0.9% 10 Ml Flush Syringe) 10 ml IV PRN PRN PRN Reason: LINE FLUSH Tizanidine HCl (Tizanidine Tab 4 Mg Tab) 4 mg PO TID PRN PRN Reason: Muscle Spasm Review of Systems All systems: negative Constitutional: fatigue, malaise Gastrointestinal: diarrhea Exam - Vital Signs Vital signs: Vital Signs Temp Pulse Resp BP Pulse Ox 98.2 F 68 18 181/78 100 12/12/21 14:36 12/12/21 14:36 12/12/21 14:36 12/12/21 14:36 12/12/21 14:36 - Physical Exam Narrative exam: General: No acute distress HEENT: Oral mucosa moist Neck: Supple, no JVD Chest: Clear to auscultation bilaterally Heart: RRR, S1 and S2, no pericardial rub Abdomen: Soft, nontender, no renal bruit Extremity: No peripheral cyanosis, edema Neurological: Alert, awake, no asterixis Dermatology: No skin rash Psych: No agitation Musculoskeletal: No joint effusion Results - Lab Results 12/12/21 15:44 12/13/21 03:29 Most recent lab results Calcium 8.2 mg/dL (8.4-10.2) L 12/13/21 03:29 Magnesium 2.70 mg/dL (1.7-2.3) H 12/12/21 15:44 Assessment and Plan Assessment - End-stage renal disease on hemodialysis - Hyperkalemia - Hypertension - Anemia of ESRD - Hyperparathyroidism - Hyperphosphatemia Recommendations - Status post emergent dialysis yesterday - Repeat today for additional care as an volume optimization - Monitor labs and volume status daily and assess need for additional dialysis session - Continue home antihypertensives - Hold antihypertensives on hemodialysis days for systolics less than 160 - Epogen with HD prn - Continue phosphorus binders - ESRD diet with 1.4 g/kg per day protein - Renally dose medication for creatinine clearance less than 15 cc/min
[2021-12-13] MEDS: tiZANidine TAB 4 MG TAB PO PRN (18:59)
[2021-12-13] MEDS: oxyCODONE /ACETAMINOPHEN 5-325MG TAB PO PRN (19:01)
[2021-12-13 21:03] LABS: ABG Base Excess 5.5 mmol/L (-2.0-3.0); ABG HCO3 31.2 mmol/L (20.0-26.0); ABG Methemoglobin 0.4 % (0.0-1.5); ABG Oxygen Saturation 93.2 % (95.0-99.0); ABG PCO2 52.1 mm Hg; ABG PH 7.396 pH Units (7.350-7.450); ABG PO2 63.2 mm Hg (80.0-90.0)
[2021-12-14] MEDS: hydrALAZINE 20 MG/1 ML INJ IV PRN (05:14)
[2021-12-14] MEDS: HYDROmorphone 0.5 MG/0.5 ML INJ IV PRN (05:15)
[2021-12-14 05:56] LABS: Calcium 8.9 mg/dL (8.4-10.2)
--- NOTE | 2021-12-14 08:05 | Discharge Summary ---
Providers - Providers Date of Admission: 12/12/21 17:00 Date of discharge: 12/14/21 Attending physician: LORENA CAMPBELL MD 12/12/21 15:24 Consult to Case Management [CONS] Stat Services Needed at Discharge: Battery Tester Physical Therapy Notified:: awaiting call back Consult to Physician [CONS] Stat Comment: Consulting Provider: MARCOS ENRIQUEZ Physician Instructions: Reason For Exam: esrd missed hd 12/12/21 16:55 Consult to Physician [CONS] Urgent Comment: Consulting Provider: MK HERNANDEZ Physician Instructions: Reason For Exam: Hyperkalemia Primary care physician: CELL TOWER CLIMBER Hospitalization Reason for admission: hyperkalemia, missed dialysis Condition: Stable Hospital course: 71-year-old female with history of ESRD on HD, hypertension and chronic back pain who presented to the ED with general malaise. Labs are notable for potassium of 8.8, bicarbonate 16 and SCR 9.7. Initial EKG also showed acute changes secondary to hyperkalemia. She was admitted for urgent hemodialysis. Her potassium level improved after 2 dialysis sessions. Patient was counseled on importance of compliance with dialysis sessions. Once stable she was discharged home. Disposition: 30 STILL A PATIENT Final Discharge Diagnosis (Prints w/discharge instructions): Hyperkalemia. Hypertensive urgency. End-stage renal disease requiring hemodialysis. Volume overload. Noncompliance. Metabolic acidosis. Chronic back pain Time spent for discharge: 40 minutes Core Measure Documentation - Palliative Care Palliative Care/ Comfort Measures: Not Applicable - Core Measures Any of the following diagnoses?: none Exam - Physical Exam Narrative exam: GENERAL: Well-developed well-nourished. In no acute distress. HEENT: Normocephalic. Atraumatic. NECK: Supple. CHEST/LUNGS: CTAB on room air HEART/CARDIOVASCULAR: RRR. No murmur, rubs or gallops appreciated. ABDOMEN: +BS. NT/ND. SKIN: No rashes noted. NEURO: No focal motor deficit. Follows all commands. MUSCULOSKELETAL: LUE AVF. EXTREMITIES: No cyanosis, clubbing or edema. PSYCH: Cooperative. - Constitutional Vitals: Temp Pulse Resp BP Pulse Ox 98.2 F 69 16 196/98 99 12/14/21 05:09 12/14/21 05:09 12/14/21 05:09 12/14/21 05:09 12/14/21 07:34 Plan Care Plan Goals: Please forward to primary care provider. Please make sure that you are going to dialysis as scheduled and not missing any treatments. Follow up with: PRIMARY CARE, [Primary Care Provider] - 7 Days Prescriptions: Ondansetron (Nf) [Zofran TAB] 8 mg PO Q8HR PRN 14 Days #42 tablet PRN Reason: Nausea
[2021-12-14] MEDS: MORPHINE 30 MG ER TAB PO SCH (09:37)
[2021-12-14] MEDS: amLODIPine 10 MG TAB PO SCH (09:37)
[2021-12-14] MEDS: SERTRALINE 50 MG TAB PO SCH (09:37)
[2021-12-14] MEDS: oxyCODONE /ACETAMINOPHEN 5-325MG TAB PO PRN (10:47)
[2021-12-14] MEDS: tiZANidine TAB 4 MG TAB PO PRN ×2 (10:47→16:19)
--- NOTE | 2021-12-14 13:22 | Progress Note ---
Assessment and Plan 71 YO Female with ESRD on HD(T,R,Sa ),HTN, HLD, Vascular Dementia, Cerebral Atherosclerosis presents to ED for evaluation. Patient states that over the past 3 days she has experience generalized weakness, nausea, multiple episodes of vomiting, abdominal cramping, lower extremity edema with persistent and worsening symptoms over the same timeframe. Patient states that she has not undergone dialysis over the past week due to the aforementioned symptoms. EMS notified and upon arrival the patient was found to be in distress and subsequent transported to [facility] for further care and evaluation of the aforementioned symptoms. The patient was seen and evaluated in the emergency department. Patient found to have end-stage renal disease in need of urgent dialysis, fluid overload, metabolic acidosis, hyperkalemia with EKG changes with widened QRS, peaked T waves, and loss of P waves, as well as accelerated hypertension. Patient admitted to ICU due to increased risk of worsening symptoms and for medical stabilization. Critical care team consulted . Patient denies fever, chills, chest pain, palpitation, productive cough, skin rash, recent contact, no exposure to COVID-19. Patients surgical history is repair of carpel tunnel ,d ialysis access, right knee surgery. Patient has no history of smoking, alcohol or drug abuse. Patient use to work in [employer]. Patient is . Has two step children. Indomethacin and Ofloxacin. Patient Alert, awake. On room air. O2 saturation 90%. No acute respiratory distress. Denies chest pain, shortness of breath or cough. ABG on room air. ABG pH 7.396 pH Units (7.350-7.450) 12/13/21 21:04 ABG pCO2 52.1 mm Hg 12/13/21 21:04 ABG pO2 63.2 mm Hg (80.0-90.0) L 12/13/21 21:04 ABG O2 Saturation 93.2 % (95.0-99.0) L 12/13/21 21:04 Patient retaining PCO2 52. Patient has no history of smoking. It could be Obesity Hypoventilation. Recommend Sleep study as Out patient. Patient afebrile. No leukocytosis. Blood pressure 119/56, Pulse 71, Respirations 16. Chest xray done 12/12/21 reported No acute findings. Patient is on albuterol inhalor 2 puffs po q 4 hours prn for shortness of breath. Recommend DVT and GI Prophylaxis. - Patient Problems (1) ESRD (end stage renal disease) Current Visit: No Status: Chronic Plan to address problem: Patient missed her dialysis as out patient.. BUN 98, creatine 9.7.on admission. Patient received dialysis during hospital course. Patients to days BUN 25, Creatinine 2.6. Management as per nephrology. (2) Hypertensive urgency Current Visit: No Status: Acute Plan to address problem: Patients blood pressure came down to normal range Recent blood pressure 119/56 Patient is on Amalodipine and Hydralagine. Patient is on hemodialysis. Management as per primary care and nephrology. (3) Volume overload Current Visit: Yes Status: Acute Plan to address problem: Patient is on Hemodialysis. Chest xray reported lungs clear. (4) Metabolic acidosis Current Visit: Yes Status: Acute Plan to address problem: Patients anion gap on admission 33. Anion gap coming down. To days anion gap 16. (5) Cerebral atherosclerosis Current Visit: Yes Status: Acute Plan to address problem: Management of blood pressure and cholesterol as per primary care. (6) Vascular dementia Current Visit: Yes Status: Acute Qualifiers: Dementia behavioral disturbance: without behavioral disturbance Qualified Code(s): F01.50 - Vascular dementia without behavioral disturbance Plan to address problem: Patient alert, oriented to day. Answred the questions appropriately. Management as per primary care and neurology. (7) Obesity with alveolar hypoventilation Current Visit: Yes Status: Acute Plan to address problem: Patient retaining PCO2, which is 52. Recommend sleep study as out patient. Recommend to loose weight. Explained sleep hygiene Recommend not to drive with sleepiness. Avoid alcohol, sedatives and Narcotics. Subjective Date of service: 12/14/21 Interval history: 71 YO Female with ESRD on HD(T,R,Sa ),HTN, HLD, Vascular Dementia, Cerebral Atherosclerosis presents to ED for evaluation. Patient states that over the past 3 days she has experience generalized weakness, nausea, multiple episodes of vomiting, abdominal cramping, lower extremity edema with persistent and worsening symptoms over the same timeframe. Patient states that she has not undergone dialysis over the past week due to the aforementioned symptoms. EMS notified and upon arrival the patient was found to be in distress and subsequent transported to [facility] for further care and evaluation of the aforementioned symptoms. The patient was seen and evaluated in the emergency department. Patient found to have end-stage renal disease in need of urgent dialysis, fluid overload, metabolic acidosis, hyperkalemia with EKG changes with widened QRS, peaked T waves, and loss of P waves, as well as accelerated hypertension. Patient admitted to ICU due to increased risk of worsening symptoms and for medical stabilization. Critical care team consulted . Patient denies fever, chills, chest pain, palpitation, productive cough, skin rash, recent contact, no exposure to COVID-19. Patients surgical history is repair of carpel tunnel ,dialysis access, right knee surgery. Patient has no history of smoking, alcohol or drug abuse. Patient use to work in [employer]. Patient is . Has two step children. Indomethacin and Ofloxacin. Patient Alert, awake. On room air. O2 saturation 90%. No acute respiratory distress. Denies chest pain, shortness of breath or cough. ABG on room air. ABG pH 7.396 pH Units (7.350-7.450) 12/13/21 21:04 ABG pCO2 52.1 mm Hg 12/13/21 21:04 ABG pO2 63.2 mm Hg (80.0-90.0) L 12/13/21 21:04 ABG O2 Saturation 93.2 % (95.0-99.0) L 12/13/21 21:04 Patient retaining PCO2 52. Patient has no history of smoking. It could be Obesity Hypoventilation. Recommend Sleep study as Out patient. Patient afebrile. No leukocytosis. Blood pressure 119/56, Pulse 71, Respirations 16. Chest xray done 12/12/21 reported No acute findings. Patient is on albuterol inhalor 2 puffs po q 4 hours prn for shortness of breath. Recommend DVT and GI Prophylaxis. Objective Vital Signs - 12hr 12/14/21 12/14/21 12/14/21 02:00 05:09 07:34 Temperature 98.2 F Pulse Rate 69 Respiratory 16 Rate Blood Pressure 196/98 O2 Sat by Pulse 99 95 99 Oximetry 12/14/21 12/14/21 08:47 11:43 Temperature 98.2 F 98.3 F Pulse Rate 83 71 Respiratory Rate Blood Pressure 180/77 119/56 O2 Sat by Pulse 96 90 Oximetry Constitutional: no acute distress, alert Eyes: non-icteric ENT: oropharynx moist Neck: supple, no lymphadenopathy Effort: normal Ascultation: Bilateral: other (Diminished breath sounds at the bases.) Cardiovascular: regular rate and rhythm Gastrointestinal: normoactive bowel sounds, soft, non-tender Integumentary: normal Extremities: no cyanosis, no edema Neurologic: normal mental status, non-focal exam, pupils equal and round, CN II- XII normal Psychiatric: mood appropriate, affect normal CBC and BMP: 12/12/21 15:44 12/14/21 05:15 ABG, PT/INR, D-dimer: ABG ABG pH 7.396 pH Units (7.350-7.450) 12/13/21 21:04 ABG pCO2 52.1 mm Hg 12/13/21 21:04 ABG pO2 63.2 mm Hg (80.0-90.0) L 12/13/21 21:04 ABG O2 Saturation 93.2 % (95.0-99.0) L 12/13/21 21:04 PT/INR, D-dimer PT 13.8 Sec. (12.2-14.9) 12/12/21 15:39 INR 0.96 (0.87-1.13) 12/12/21 15:39 Abnormal lab findings: Abnormal Labs 12/12/21 12/12/21 12/12/21 15:44 15:44 23:02 RBC 3.27 L RDW 17.5 H ABG pO2 ABG HCO3 ABG O2 Saturation ABG Base Excess ABG Hemoglobin Oxyhemoglobin Sodium 133 L 134 L Potassium 8.8 H* 5.2 H D Chloride 92.4 L 90.2 L Carbon Dioxide 16 L BUN 98 H 35 H Creatinine 9.7 H 4.7 H D Glucose 129 H 111 H Calcium Magnesium 2.70 H NT-Pro-B Natriuret Pep 38399 H 12/13/21 12/13/21 12/14/21 03:29 21:04 05:15 RBC RDW ABG pO2 63.2 L ABG HCO3 31.2 H ABG O2 Saturation 93.2 L ABG Base Excess 5.5 H ABG Hemoglobin 9.3 L Oxyhemoglobin 90.9 L Sodium 136 L 133 L Potassium Chloride 93.7 L 91.9 L Carbon Dioxide BUN 35 H 25 H Creatinine 5.3 H 3.6 H Glucose 109 H Calcium 8.2 L Magnesium NT-Pro-B Natriuret Pep
[2021-12-14 16:39] VITALS: BP 158/51
--- NOTE | 2021-12-14 18:56 | Progress Note ---
Assessment and Plan Assessment - End-stage renal disease on hemodialysis - Hyperkalemia - Hypertension - Anemia of ESRD - Hyperparathyroidism - Hyperphosphatemia Recommendations - Status post dialysis daily x 2 days - Repeat today for additional care as an volume optimization - Monitor labs and volume status daily and assess need for additional dialysis s ession - Continue home antihypertensives - Hold antihypertensives on hemodialysis days for systolics less than 160 - Epogen with HD prn - Continue phosphorus binders - ESRD diet with 1.4 g/kg per day protein - Renally dose medication for creatinine clearance less than 15 cc/min Subjective Date of service: 12/14/21 Principal diagnosis: Hyperkalemia Interval history: Status post dialysis daily 2 days Nursing, interdisciplinary and consult notes were reviewed Vitals, input and output, medications and labs were reviewed Objective - Exam Narrative Exam: General: No acute distress HEENT: Oral mucosa moist Neck: Supple, no JVD Chest: Clear to auscultation bilaterally Heart: RRR, S1 and S2, no pericardial rub Abdomen: Soft, nontender, no renal bruit Extremity: No peripheral cyanosis, edema Neurological: Alert, awake, no asterixis Dermatology: No skin rash Psych: No agitation Musculoskeletal: No joint effusion - Vital Signs Vital signs: Vital Signs - 12hr 12/14/21 12/14/21 12/14/21 07:34 08:47 11:43 Temperature 98.2 F 98.3 F Pulse Rate 83 71 Blood Pressure 180/77 119/56 O2 Sat by Pulse 99 96 90 Oximetry 12/14/21 16:28 Temperature 98.3 F Pulse Rate 67 Blood Pressure 158/51 O2 Sat by Pulse 92 Oximetry - Lab 12/12/21 15:44 12/14/21 05:15 Most recent lab results ABG pH 7.396 pH Units (7.350-7.450) 12/13/21 21:04 ABG pCO2 52.1 mm Hg 12/13/21 21:04 ABG pO2 63.2 mm Hg (80.0-90.0) L 12/13/21 21:04 ABG HCO3 31.2 mmol/L (20.0-26.0) H 12/13/21 21:04 ABG O2 Saturation 93.2 % (95.0-99.0) L 12/13/21 21:04 Calcium 8.9 mg/dL (8.4-10.2) 12/14/21 05:15 Magnesium 2.70 mg/dL (1.7-2.3) H 12/12/21 15:44 Medications & Allergies - Medications Allergies/Adverse Reactions: Allergies indomethacin [From Indocin] Allergy (Verified 12/12/21 14:39) Headache ofloxacin [From Floxin] Allergy (Verified 12/12/21 14:39) Hives Home Medications: Home Medications Medication Instructions Recorded Confirmed Last Taken Type Morphine ER [Ms Contin ER] 30 mg PO Q12H 12/13/21 12/13/21 Unknown History Oxycodone HCl/Acetaminophen 1 each PO Q12HR PRN 12/13/21 12/13/21 Unknown History [Percocet 10/325 mg] Sertraline [Zoloft] 50 mg PO QDAY 12/13/21 12/13/21 Unknown History amLODIPine 10 mg PO DAILY 12/13/21 12/13/21 Unknown History tiZANidine [Zanaflex 4mg TAB] 4 mg PO TID PRN 12/13/21 12/13/21 Unknown History Ondansetron (Nf) [Zofran TAB] 8 mg PO Q8HR PRN 14 Days #42 tablet 12/14/21 Unknown Rx
--- NOTE | 2021-12-18 13:35 | Electrocardiograph Report ---
[facility] Test Date: 2021-12-12 Test Time: 16:08:19 Pat Name: TALIA ESCOBAR Department: Room: A486 1 Gender: F Packaging Specialist: TV : 1950 Requested By: THEODORE GONZALEZ Order Number: [id number] Reading MD: Mike Peter Measurements Intervals [place] Rate: 81 P: MI: QRS: 257 QRSD: 140 T: 73 QT: 416 QTc: 485 Interpretive Statements Sinus rhythm with marked, first-degree AV block Nonspecific IVCD with LAD Consider anterior infarct Compared to ECG 07/12/2021 18:14:53 There is development of QRS widening on the current ECG Electronically Signed On 12-18-2021 13:35:11 EDT by Mike Peter
== END 2021-12-14 18:42 | disposition home or self-care (01) | DRG 640 ==
LOC: ED 14:31 → CC1 17:00 → 4A 20:47
PROVIDERS: ADMIT Internal Medicine; ATTEND Student in an Organized Health Care Education/Training Program
PROC: 5A1D70Z Performance of Urinary Filtration, Intermittent, Less than 6 Hours Per Day (ICD-10-PCS; 2021-12-12)
PROC: 4A033R1 Measurement of Arterial Saturation, Peripheral, Percutaneous Approach (ICD-10-PCS; principal; 2021-12-13)
PROC: 5A1D70Z Performance of Urinary Filtration, Intermittent, Less than 6 Hours Per Day (ICD-10-PCS; 2021-12-13)
DX: E87.5 Hyperkalemia (principal); N18.6 End stage renal disease; E66.2 Morbid (severe) obesity with alveolar hypoventilation; I12.0 Hypertensive chronic kidney disease with stage 5 chronic kidney disease or end stage renal disease; I16.0 Hypertensive urgency; E87.2 Acidosis; M19.90 Unspecified osteoarthritis, unspecified site; E11.22 Type 2 diabetes mellitus with diabetic chronic kidney disease; Z99.2 Dependence on renal dialysis; G89.29 Other chronic pain; M54.50 Low back pain, unspecified; E87.70 Fluid overload, unspecified; F01.50 Vascular dementia, unspecified severity, without behavioral disturbance, psychotic disturbance, mood disturbance, and anxiety; E78.5 Hyperlipidemia, unspecified; I67.2 Cerebral atherosclerosis; D63.1 Anemia in chronic kidney disease; E21.3 Hyperparathyroidism, unspecified; Z68.34 Body mass index [BMI] 34.0-34.9, adult; Z91.19 Patient's noncompliance with other medical treatment and regimen; Z88.8 Allergy status to other drugs, medicaments and biological substances; Z90.49 Acquired absence of other specified parts of digestive tract; Z82.49 Family history of ischemic heart disease and other diseases of the circulatory system
CPT/HCPCS: 36415; 36600; 71045; 80048; 80053; 80074; 82550; 82803; 83735; 83880; 85027; 85610; 86850; 86900; 86901; 93005; 99291; G0378; J3490; Q9967; J0360; J0610; J1170; J1815; J2270; J2405